=== PATIENT | female | born 1945 | race Caucasian/White ===

== ENCOUNTER 2017-10-16 11:06 | Emergency (ER) | payer OTHER, MEDICARE ==
[2017-10-16 12:26] LABS: Absolute Lymphocytes (CBC) 1.4 K/uL (0.7-4.9); Absolute Monocytes 0.6 K/uL (0.1-1.3); Absolute Neutrophil 3.9 K/uL (1.8-8.0); Basophils % 0.7 % (0-1.3); Eosinophils % 3.6 % (0-4.4); Hematocrit 44.8 % (36.0-45.0); Lymphocytes % 22.7 % (15.3-44.8); MCH 29.7 pg (27.0-35.0); MCV 90.6 fL (80-100); MPV 11.9 fL (7.6-11.3); RBC Red Blood Cell Count 4.94 M/uL (3.86-4.86)
[2017-10-16 12:47] LABS: Potassium 3.8 mEq/L (3.6-5.0)
[2017-10-16 12:53] LABS: Albumin 4.3 g/dL (3.2-5.5); Bilirubin Direct 0.2 mg/dL (0-0.2); Bilirubin Total 0.6 mg/dL (0.3-1.2); Protein, Total 7.8 g/dL (6.0-8.3)
[2017-10-16 13:30] LABS: Urine Bacteria <20 /HPF (<20); Urine Culture Reflex Order NOT NEEDED; Urine RBC <5 /HPF (NONE SEEN)
--- NOTE | 2017-10-16 13:51 | RAD REPORT ---
EXAM DESCRIPTION: CTAbdomen Pelvis W Contrast - 10/16/2017 1:42 pm CLINICAL HISTORY: Abdominal pain. COMPARISON: None. TECHNIQUE: Biphasic CT imaging of the abdomen and pelvis was performed with 100 ml non-ionic IV cont rast. All CT scans are performed using dose optimization technique as appropriate and may include automated exposure control or mA/KV adjustment according to patient size. FINDINGS: The lung bases are clear.Cholecystectomy clips. The liver, spleen, pancreas, adrenal glands and kidneys are within normal limits. No bowel obstruction, free air, free fluid or abscess. The appendix is normal. No evidence of signi ficant lymphadenopathy. No suspicious bony findings. IMPRESSION: No acute intra-abdominal or pelvic finding.
--- NOTE | 2017-10-16 13:58 | EDPHYS ---
Physician Documentation [facility] Name: Marilee Blanchard Age: 71 yrs Sex: Female : 1945 Arrival Date: 10/16/2017 Time: 11:11 Bed 20 Private MD: Rm Goss E ED Physician Zi Beaulieu HPI: 10/16 12:07 This 71 yrs old Female presents to ER via Ambulatory with complaints of kdr Abdominal Pain, Black/Tarry Stools. 12:07 The patient presents with abdominal pain in the lower abdomen, Low back. Onset: The kdr symptoms/episode began/occurred gradually, 3 day(s) ago. The symptoms radiate to low back area. Associated signs and symptoms: Pertinent positives: nausea, Chills, Pertinent negatives: blood in stools, chest pain, constipation, diarrhea, dysuria, fever, headache, hematuria, palpitations, shortness of breath, vaginal discharge, vomiting, vomiting blood. The symptoms are described as achy, burning, crampy, intermittent. Severity of pain: At its worst the pain was mild moderate just prior to arrival, in the emergency department the pain. The patient has not experienced similar symptoms in the past. The patient has not recently seen a physician, has had prior Colonoscopy. Historical: - Allergies: 11:26 No Known Allergies; ae1 - Home Meds: 11:26 pantoprazole oral oral [Active]; Vitamin D Oral [Active]; ae1 - PMHx: 11:26 Osteoporosis; GERD; breast cancer; ae1 - PSHx: 11:26 Lumpectomy; Cholecystectomy; ae1 - Immunization history:: Last tetanus immunization: up to date Pneumococcal vaccine is up to date, Flu vaccine is up to date. - Social history:: Smoking status: Patient/guardian denies using tobacco. - Ebola Screening: : No symptoms or risks identified at this time. ROS: 12:07 Constitutional: Negative for fever, chills, and weight loss, Eyes: Negative for injury, kdr pain, redness, and discharge, ENT: Negative for injury, pain, and discharge, Neck: Negative for injury, pain, and swelling, Cardiovascular: Negative for chest pain, palpitations, and edema, Respiratory: Negative for shortness of breath, cough, wheezing, and pleuritic chest pain, Back: Negative for injury and pain, : Negative for injury, bleeding, discharge, and swelling, MS/Extremity: Negative for injury and deformity, Skin: Negative for injury, rash, and discoloration, Neuro: Negative for headache, weakness, numbness, tingling, and seizure activity. Psych: Negative for depression, anxiety, suicide ideation, homicidal ideation, and hallucinations, Allergy/Immunology: Negative for hives, rash, and allergies, Endocrine: Negative for neck swelling, polydipsia, polyuria, polyphagia, and marked weight changes, Hematologic/Lymphatic: Negative for swollen nodes, abnormal bleeding, and unusual bruising. 12:07 Abdomen/GI: Positive for abdominal pain, nausea, black/tarry stool. Exam: 12:07 Constitutional: This is a well developed, well nourished patient who is awake, alert, kdr and in no acute distress. Head/Face: Normocephalic, atraumatic. Eyes: Pupils equal round and reactive to light, extra-ocular motions intact. Lids and lashes normal. Conjunctiva and sclera are non-icteric and not injected. Cornea within normal limits. Periorbital areas with no swelling, redness, or edema. Neck: Trachea midline, no thyromegaly or masses palpated, and no cervical lymphadenopathy. Supple, full range of motion without nuchal rigidity, or vertebral point tenderness. No Meningismus. Chest/axilla: Normal chest wall appearance and motion. Nontender with no deformity. No lesions are appreciated. Cardiovascular: Regular rate and rhythm with a normal S1 and S2. No gallops, murmurs, or rubs. Normal PMI, no JVD. No pulse deficits. Respiratory: Lungs have equal breath sounds bilaterally, clear to auscultation and percussion. No rales, rhonchi or wheezes noted. No increased work of breathing, no retractions or nasal flaring. Abdomen/GI: Soft, non-tender, with normal bowel sounds. No distension or tympany. No guarding or rebound. No evidence of tenderness throughout. Back: No spinal tenderness. No costovertebral tenderness. Full range of motion. Skin: Warm, dry with normal turgor. Normal color with no rashes, no lesions, and no evidence of cellulitis. MS/ Extremity: Pulses equal, no cyanosis. Neurovascular intact. Full, normal range of motion. Neuro: Awake and alert, GCS 15, oriented to person, place, time, and situation. Cranial nerves II-XII grossly intact. Motor strength 5/5 in all extremities. Sensory grossly intact. Cerebellar exam normal. Normal gait. Psych: Awake, alert, with orientation to person, place and time. Behavior, mood, and affect are within normal limits. 12:07 Abdomen/GI: Rectal exam: rectal tone normal, Stool: normal, brown, guaiac negative. Vital Signs: 11:24 BP 152 / 98; Pulse 62; Resp 19; Temp 98.3(O); Pulse Ox 99% on R/A; Weight 68.95 kg (R); ae1 12:24 BP 149 / 89; Pulse 60; Resp 18; Pulse Ox 98% on R/A; Pain 0/10; em 13:38 BP 145 / 91; Pulse 56; Resp 18; Pulse Ox 99% on R/A; em 14:15 BP 171 / 72; Pulse 54; Resp 18; Pulse Ox 97% on R/A; em MDM: 12:07 Data reviewed: vital signs, nurses notes, lab test result(s), radiologic studies. kdr Counseling: I had a detailed discussion with the patient and/or guardian regarding: the historical points, exam findings, and any diagnostic results supporting the discharge/admit diagnosis, lab results, radiology results. 13:57 Patient medically screened. [facility] 10/16 12:06 Order name: Occult Blood--Ancillary; Complete Time: 13: 10/16 12:07 Order name: Basic Metabolic Panel; Complete Time: 13: [facility] 10/16 12:07 Order name: CBC with Diff; Complete Time: 13: [facility] 10/16 12:07 Order name: Creatinine for Radiology; Complete Time: 13: [facility] 10/16 12:07 Order name: Hepatic Function; Complete Time: 13:01 [facility] 10/16 12:07 Order name: Lipase; Complete Time: 13:01 [facility] 10/16 12:07 Order name: Urine Microscopic Only; Complete Time: 13:56 [facility] 10/16 12:07 Order name: IV Saline Lock; Complete Time: 12:08 [facility] 10/16 12:07 Order name: Labs collected and sent; Complete Time: 13:46 [facility] 10/16 12:07 Order name: Urine Dipstick-Ancillary (obtain specimen); Complete Time: 13:46 [facility] 10/16 12:07 Order name: CT Abd/Pelvis - W/Contrast; Complete Time: 13:56 [facility] 10/16 13:14 Order name: Urine Dipstick--Ancillary (enter results) bd Administered Medications: No medications were administered Disposition: 10/16/17 13:57 Discharged to Home. Impression: Abdominal and pelvic pain. - Condition is Stable. - Discharge Instructions: Abdominal Pain, Adult, [id number]. - Prescriptions for Bentyl 20 mg Oral Tablet - take 1 tablet by ORAL route every 6 hours As needed; 20 tablet. Pepcid 20 mg Oral Tablet - take 1 tablet by ORAL route every 12 hours for 5 days; 10 tablet. Zofran 4 mg Oral Tablet - take 1 tablet by ORAL route every 12 hours As needed; 6 tablet. Tramadol 50 mg Oral Tablet - take 1 tablet by ORAL route every 8 hours as needed; 12 tablet. - Medication Reconciliation Form, Thank You Letter, Antibiotic Education, Prescription Opioid Use form. - Follow up: Rm Goss MD; When: 2 - 3 days; Reason: If symptoms return, Further diagnostic work-up, Recheck today's complaints, Continuance of care, Re-evaluation by your physician. - Problem is an ongoing problem. - Symptoms have improved. Signatures: Dispatcher [employer] EDMS Zi Beaulieu MD MD kdr Uriel Cho, BORDER MEASURER BORDER MEASURER em Neal Grissom RN RN ae1 Corrections: (The following items were deleted from the chart) 14:30 13:57 10/16/2017 13:57 Discharged to Home. Impression: Abdominal and pelvic pain. em Condition is Stable. Forms are Medication Reconciliation Form, Thank You Letter, Antibiotic Education, Prescription Opioid Use. Follow up: Rm Goss; When: 2 - 3 days; Reason: If symptoms return, Further diagnostic work-up, Recheck today's complaints, Continuance of care, Re-evaluation by your physician. Problem is an ongoing problem. Symptoms have improved. kdr
--- NOTE | 2017-10-16 13:58 | ER ---
Nurse's Notes [facility] Name: Marilee Blanchard Age: 71 yrs Sex: Female : 1945 Arrival Date: 10/16/2017 Time: 11:11 Bed 20 Private MD: Rm Goss E Diagnosis: Abdominal and pelvic pain Presentation: 10/16 11:22 Presenting complaint: Patient states: Patient report "black tarry stool" and abdominal ae1 pain since the previous Wednesday. Transition of care: patient was not received from another setting of care. Onset of symptoms was October 13, 2017. 11:22 Method Of Arrival: Ambulatory ae1 11:22 Acuity: RHEA 3 ae1 11:28 Initial Sepsis Screen: Does the patient meet any 2 criteria? No. Patient's initial ae1 sepsis screen is negative. Does the patient have a suspected source of infection? No. Patient's initial sepsis screen is negative. 12:55 Risk Assessment: Do you want to hurt yourself or someone else? Patient reports no em desire to harm self or others. Care prior to arrival: None. Triage Assessment: 11:27 General: Appears in no apparent distress. comfortable, well groomed, Behavior is calm, ae1 cooperative. Pain: Complains of pain in abdomen Pain currently is 1 out of 10 on a pain scale. at worst was 10 out of 10 on a pain scale. Neuro: Level of Consciousness is awake, alert, obeys commands, Oriented to person, place, time, situation. GI: Abdomen is round. Historical: - Allergies: 11:26 No Known Allergies; ae1 - Home Meds: 11:26 pantoprazole oral oral [Active]; Vitamin D Oral [Active]; ae1 - PMHx: 11:26 Osteoporosis; GERD; breast cancer; ae1 - PSHx: 11:26 Lumpectomy; Cholecystectomy; ae1 - Immunization history:: Last tetanus immunization: up to date Pneumococcal vaccine is up to date, Flu vaccine is up to date. - Social history:: Smoking status: Patient/guardian denies using tobacco. - Ebola Screening: : No symptoms or risks identified at this time. Screenin:55 Abuse screen: Denies threats or abuse. Nutritional screening: No deficits noted. em Tuberculosis screening: No symptoms or risk factors identified. Fall Risk None identified. Assessment: 11:55 General: Appears in no apparent distress. uncomfortable, Behavior is calm, cooperative. em General: Reports chills for black tarry stool this morning and feeling "uncomfortable" with N denies vomiting or diarrhea. Pain: Denies pain. Neuro: Level of Consciousness is awake, alert, obeys commands, Oriented to person, place, time, situation. Cardiovascular: Capillary refill < 3 seconds Patient's skin is warm and dry. Respiratory: Airway is patent Respiratory effort is even, unlabored, Breath sounds are clear bilaterally. GI: Abdomen is round non-distended, Bowel sounds present X 4 quads. Abd is soft and non tender X 4 quads. Reports nausea. : Denies burning with urination. EENT: No signs and/or symptoms were reported regarding the EENT system. Derm: Skin is intact, Skin is pink, warm \\T\\ dry. Musculoskeletal: Range of motion: intact in all extremities. 12:00 Reassessment: Patient appears in no apparent distress at this time. I agree with above iw assessment by Uriel Cho LVN. 12:45 Reassessment: Patient appears in no apparent distress at this time. Patient and/or em family updated on plan of care and expected duration. Pain level reassessed. Patient is alert, oriented x 3, equal unlabored respirations, skin warm/dry/pink. 13:45 Reassessment: Patient appears in no apparent distress at this time. Patient and/or em family updated on plan of care and expected duration. Pain level reassessed. Patient is alert, oriented x 3, equal unlabored respirations, skin warm/dry/pink. Patient denies pain at this time. Vital Signs: 11:24 BP 152 / 98; Pulse 62; Resp 19; Temp 98.3(O); Pulse Ox 99% on R/A; Weight 68.95 kg (R); ae1 12:24 BP 149 / 89; Pulse 60; Resp 18; Pulse Ox 98% on R/A; Pain 0/10; em 13:38 BP 145 / 91; Pulse 56; Resp 18; Pulse Ox 99% on R/A; em 14:15 BP 171 / 72; Pulse 54; Resp 18; Pulse Ox 97% on R/A; em ED Course: 11:11 Patient arrived in ED. mr 11:11 Rm Goss MD is Private Physician. mr 11:12 Zi Beaulieu MD is Attending Physician. kdr 11:24 Triage completed. ae1 11:25 Arm band placed on right wrist. ae1 11:56 Initial lab(s) drawn, by me, held in ED. Urine collected: clean catch specimen, clear. mh5 Inserted saline lock: 20 gauge in right antecubital area, using aseptic technique. Blood collected. 11:57 Patient has correct armband on for positive identification. Placed in gown. Bed in low mh5 position. Call light in reach. Side rails up X 1. Adult w/ patient. Warm blanket given. Pillow given. Pulse ox on. NIBP on. 12:14 sent to lab. 5 12:32 Uriel Cho LVN is Primary Nurse. em 12:55 No provider procedures requiring assistance completed. em 13:42 CT Abd/Pelvis - W/Contrast In Process Unspecified. EDMS 13:56 Rm Goss MD is Referral Physician. kdr 14:29 IV discontinued, intact, bleeding controlled, No redness/swelling at site. Pressure em dressing applied. Administered Medications: No medications were administered Outcome: 13:57 Discharge ordered by . kdr 14:29 Discharged to home ambulatory. em 14:29 Condition: good 14:29 Discharge instructions given to patient, family, Instructed on discharge instructions, follow up and referral plans. medication usage, Demonstrated understanding of instructions, follow-up care, medications, Prescriptions given X 4. 14:30 Patient left the ED. em Signatures: Dispatcher [employer] EDKS Zi Beaulieu MD MD kdr Rivera, Maria mr Uriel Cho LVN FITTER TYPE BAR AND SEGMENT em Libra Gannon RN RN Neal Grissom RN RN [facility] Phuong Smith [facility]
[2017-10-16 14:39] LABS: Urine Blood NEGATIVE (NEG); Urine Glucose NEGATIVE (NEG); Urine Protein NEGATIVE (NEG); Urine Specific Gravity 1.015 (1.005-1.030); Urine pH 6.5 (5.0-7.0)
== END 2017-10-16 14:30 | disposition home or self-care (01) ==
LOC: ER 11:06
DX: R10.2 Pelvic and perineal pain (principal); K21.9 Gastro-esophageal reflux disease without esophagitis; Z85.3 Personal history of malignant neoplasm of breast
CPT/HCPCS: 36415; 74177; 80048; 80076; 82272; 83690; 85025; 99284; Q9967; 81003; 81015

== ENCOUNTER 2017-12-06 15:00 | Observation (INO) | payer OTHER, MEDICARE ==
--- NOTE | 2017-12-06 15:45 | ER ---
Nurse's Notes [facility] Name: Marilee Blanchard Age: 72 yrs Sex: Female : 1945 Arrival Date: 12/06/2017 Time: 15:02 Bed 4 Private MD: Rm Goss E Diagnosis: Atrial fibrillation and flutter Presentation: 12/06 15:10 Presenting complaint: Patient states: "I was in rehab and I got heaviness in my chest". aa5 Pt denies SOB. Sent here for A-fib RVR up to [address] Khan. Pt states "the first time I had A-fib was about [address] Khan said that if it happened again I would have to be admitted to the hospital". Transition of care: patient was not received from another setting of care. Onset of symptoms was December 06, 2017. Risk Assessment: Do you want to hurt yourself or someone else? Patient reports no desire to harm self or others. Initial Sepsis Screen: Does the patient meet any 2 criteria? No. Patient's initial sepsis screen is negative. Does the patient have a suspected source of infection? No. Patient's initial sepsis screen is negative. 15:10 Method Of Arrival: Ambulatory aa5 15:10 Acuity: RHEA 2 aa5 15:10 Care prior to arrival: None. aa5 Triage Assessment: 15:27 General: Appears in no apparent distress. uncomfortable, Behavior is calm, cooperative, hj appropriate for age. Pain: Complains of pain in chest. EENT: No signs and/or symptoms were reported regarding the EENT system. Neuro: Level of Consciousness is awake, alert, obeys commands, Oriented to person, place, time, situation, Appropriate for age. Cardiovascular: Reports chest pain, Heart tones S1 S2 present Capillary refill < 3 seconds Patient's skin is warm and dry. Respiratory: Reports shortness of breath Airway is patent Respiratory effort is even, unlabored, Respiratory pattern is regular, symmetrical. GI: No signs and/or symptoms were reported involving the gastrointestinal system. : No signs and/or symptoms were reported regarding the genitourinary system. Derm: No signs and/or symptoms reported regarding the dermatologic system. Musculoskeletal: No signs and/or symptoms reported regarding the musculoskeletal system. Historical: - Allergies: 15:12 No Known Allergies; aa5 - Home Meds: 15:29 pantoprazole Oral [Active]; Vitamin D Oral [Active]; Xarelto oral oral [Active]; hj - PMHx: 15:12 breast cancer; GERD; Osteoporosis; Atrial Fib; aa5 - PSHx: 15:12 L lumpectomy; Cholecystectomy; aa5 - Immunization history:: Adult Immunizations up to date. - Social history:: Smoking status: Patient/guardian denies using tobacco. - Ebola Screening: : No symptoms or risks identified at this time. Screenin:27 Abuse screen: Denies threats or abuse. Denies injuries from another. Nutritional hj screening: No deficits noted. Tuberculosis screening: No symptoms or risk factors identified. Fall Risk None identified. Assessment: 15:28 Reassessment: see triage for assessment;. hj 16:36 Reassessment: Patient and/or family updated on plan of care and expected duration. Pain hj level reassessed. Patient is alert, oriented x 3, equal unlabored respirations, skin warm/dry/pink. Patient states feeling better. Patient states symptoms have improved. 16:55 Reassessment: Patient and/or family updated on plan of care and expected duration. Pain hj level reassessed. Patient is alert, oriented x 3, equal unlabored respirations, skin warm/dry/pink. report given to DIANE Lopez. Vital Signs: 15:10 BP 150 / 93; Pulse 110; Resp 18 S; Temp 98.1(TE); Pulse Ox 98% on R/A; Weight 68.49 kg aa5 (R); Height 5 ft. 1 in. (154.94 cm) (R); Pain 3/10; 15:30 BP 141 / 76; Pulse 126; Resp 18; Pulse Ox 100% on R/A; hj 16:00 BP 142 / 76; Pulse 135; Resp 18; Pulse Ox 100% on R/A; hj 16:30 BP 144 / 76; Pulse 122; Resp 18; Pulse Ox 100% on R/A; hj 15:10 Body Mass Index 28.53 (68.49 kg, 154.94 cm) aa5 ED Course: 15:02 Patient arrived in ED. mr 15:03 Rm Goss MD is Private Physician. mr 15:10 Arm band placed on. aa5 15:11 Triage completed. aa5 15:13 Calos Carpenter MD is Attending Physician. gs 15:16 Rafal Michelle, RN is Primary Nurse. hj 15:17 EKG done, by audiovisual aids technician. reviewed by Calos Carpenter MD. at1 15:26 Initial lab(s) drawn, by me, sent to lab. Inserted saline lock: 22 gauge in right hj antecubital area, using aseptic technique. Blood collected. 15:28 Patient has correct armband on for positive identification. Placed in gown. Bed in low hj position. Call light in reach. Side rails up X 1. Adult w/ patient. 15:44 Reginaldo Warren MD is Hospitalizing Provider. gs 17:12 No provider procedures requiring assistance completed. Patient admitted, IV remains in hj place. intact. Administered Medications: 06:10 Drug: Flecainide 100 mg Route: PO; hj 16:38 Follow up: Response: No adverse reaction hj 16:10 Drug: Cardizem - Diltiazem 180 mg Route: PO; hj 16:38 Follow up: Response: No adverse reaction Outcome: 15:45 Decision to Hospitalize by Provider. gs 17:12 Admitted to Tele accompanied by tech, family with patient, via wheelchair, room 406, with chart, Report called to DIANE Lopez 17:12 Condition: stable 17:12 Instructed on the need for admit, Demonstrated understanding of instructions. 17:13 Patient left the ED. Signatures: Phuong Garcia mr WhiteDeidra, RN RN aa5 Uzma crum, hose cementer EKG Tat1 Rafal Michelle, RN RN Calos Carpenter MD MD Corrections: (The following items were deleted from the chart) 15:23 15:10 Presenting complaint: Patient states: "I was in rehab and I got heaviness in my aa5 chest". Pt denies SOB. Sent here for A-fib RVR up to [address] Khan. aa5 16:55 16:36 General: Behavior is hj hj
--- NOTE | 2017-12-06 15:45 | EDPHYS ---
Physician Documentation [facility] Name: Marilee Blanchard Age: 72 yrs Sex: Female : 1945 Arrival Date: 12/06/2017 Time: 15:02 Bed 4 Private MD: Rm Goss E ED Physician Calos Carpenter HPI: 12/06 16:08 This 72 yrs old Female presents to ER via Ambulatory with complaints of A-fib.gs 16:08 The patient presents with a history of irregular heart beat, heart racing. Context: The gs symptoms occur at rest. Onset: The symptoms/episode began/occurred 2 week(s) ago, and became persistent. Duration: The patient or guardian reports a single episode, that is still ongoing. Modifying factors: The symptoms are aggravated by nothing. The symptoms are alleviated by nothing. Associated signs and symptoms: Pertinent negatives: chest pain, SOB. Severity of symptoms: At their worst the symptoms were moderate in the emergency department the symptoms are unchanged. The patient has experienced similar episodes in the past, a few times. The patient has been recently seen by a physician: Dr. PAINTING. Historical: - Allergies: 15:12 No Known Allergies; aa5 - Home Meds: 15:29 pantoprazole Oral [Active]; Vitamin D Oral [Active]; Xarelto oral oral [Active]; hj - PMHx: 15:12 breast cancer; GERD; Osteoporosis; Atrial Fib; aa5 - PSHx: 15:12 L lumpectomy; Cholecystectomy; aa5 - Immunization history:: Adult Immunizations up to date. - Social history:: Smoking status: Patient/guardian denies using tobacco. - Ebola Screening: : No symptoms or risks identified at this time. ROS: 16:08 All other systems are negative. gs Exam: 16:08 Head/Face: Normocephalic, atraumatic. Eyes: Pupils equal round and reactive to light, gs extra-ocular motions intact. Lids and lashes normal. Conjunctiva and sclera are non-icteric and not injected. Cornea within normal limits. Periorbital areas with no swelling, redness, or edema. ENT: Nares patent. No nasal discharge, no septal abnormalities noted. Tympanic membranes are normal and external auditory canals are clear. Oropharynx with no redness, swelling, or masses, exudates, or evidence of obstruction, uvula midline. Mucous membranes moist. Neck: Trachea midline, no thyromegaly or masses palpated, and no cervical lymphadenopathy. Supple, full range of motion without nuchal rigidity, or vertebral point tenderness. No Meningismus. Chest/axilla: Normal chest wall appearance and motion. Nontender with no deformity. No lesions are appreciated. 16:08 Respiratory: Lungs have equal breath sounds bilaterally, clear to auscultation and percussion. No rales, rhonchi or wheezes noted. No increased work of breathing, no retractions or nasal flaring. Abdomen/GI: Soft, non-tender, with normal bowel sounds. No distension or tympany. No guarding or rebound. No evidence of tenderness throughout. Back: No spinal tenderness. No costovertebral tenderness. Full range of motion. Skin: Warm, dry with normal turgor. Normal color with no rashes, no lesions, and no evidence of cellulitis. MS/ Extremity: Pulses equal, no cyanosis. Neurovascular intact. Full, normal range of motion. Neuro: Awake and alert, GCS 15, oriented to person, place, time, and situation. Cranial nerves II-XII grossly intact. Motor strength 5/5 in all extremities. Sensory grossly intact. Cerebellar exam normal. Normal gait. 16:08 Constitutional: The patient appears in no acute distress, alert, awake. 16:08 Cardiovascular: Rate: tachycardic, Rhythm: irregularly irregular, Pulses: no pulse deficits are appreciated, Heart sounds: normal, Edema: is not appreciated. 16:08 ECG was reviewed by the Attending Physician. Vital Signs: 15:10 BP 150 / 93; Pulse 110; Resp 18 S; Temp 98.1(TE); Pulse Ox 98% on R/A; Weight 68.49 kg aa5 (R); Height 5 ft. 1 in. (154.94 cm) (R); Pain 3/10; 15:30 BP 141 / 76; Pulse 126; Resp 18; Pulse Ox 100% on R/A; hj 16:00 BP 142 / 76; Pulse 135; Resp 18; Pulse Ox 100% on R/A; hj 16:30 BP 144 / 76; Pulse 122; Resp 18; Pulse Ox 100% on R/A; hj 15:10 Body Mass Index 28.53 (68.49 kg, 154.94 cm) aa5 MDM: 15:30 Patient medically screened. 16:08 Differential diagnosis: arrythmia, dehydration, stress disorder, PNEUMONIA, gs AFIB/FLUTTER. Data reviewed: vital signs, nurses notes. Response to treatment: the patient's symptoms have mildly improved after treatment, and as a result, I will admit patient. 12/06 15:29 Order name: Basic Metabolic Panel 12/06 15:29 Order name: CBC with Diff 12/06 15:29 Order name: Magnesium 12/06 15:29 Order name: PT-INR 12/06 15:59 Order name: CBC with Automated Diff [facility] 12/06 15:59 Order name: CBC with Automated Diff [facility] 12/06 15:29 Order name: EKG; Complete Time: 15:30 12/06 15:59 Order name: Comprehensive Metabolic Panel [facility] 12/06 15:59 Order name: Comprehensive Metabolic Panel [facility] 12/06 15:59 Order name: Magnesium [facility] 12/06 15:59 Order name: Magnesium [facility] 12/06 16:03 Order name: Urine Dipstick--Ancillary (enter results) 12/06 15:29 Order name: Cardiac monitoring; Complete Time: 15:30 12/06 15:29 Order name: EKG - Nurse/Tech; Complete Time: 15:30 12/06 15:29 Order name: IV Saline Lock; Complete Time: 15:30 12/06 15:29 Order name: Labs collected and sent; Complete Time: 15:30 12/06 15:29 Order name: O2 Per Protocol; Complete Time: 15:30 12/06 15:29 Order name: O2 Sat Monitoring; Complete Time: 15:30 12/06 15:58 Order name: CONS Physician Consult [facility] 12/06 15:59 Order name: Heart Healthy [facility] EC:08 Rate is 103 beats/min. Rhythm is irregularly irregular. QRS interval is normal. QT gs interval is normal. T waves are Flattened. Clinical impression: Abnormal EKG without significant change, Atrial Fibrillation, and Atrial Flutter. Interpreted by me. Administered Medications: 06:10 Drug: Flecainide 100 mg Route: PO; 16:38 Follow up: Response: No adverse reaction 16:10 Drug: Cardizem - Diltiazem 180 mg Route: PO; 16:38 Follow up: Response: No adverse reaction hj Disposition: 12/06/17 15:45 Hospitalization ordered by Reginaldo Warren for Inpatient Admission. Preliminary diagnosis is Atrial fibrillation and flutter. - Bed requested for Telemetry/MedSurg (Inpatient). - Status is Inpatient Admission. hj - Condition is Stable. - Problem is new. - Symptoms have improved. UTI on Admission? No Critical care time excluding procedures: 16:08 Critical care time: Bedside Care: 10 minutes, Consultation: 10 minutes, Family gs Intervention: 10 minutes. Total time: 30 minutes Signatures: Dispatcher [employer] EDMS Deidra White, RN RN aa5 Rafal Michelle RN RN hj Starr, Gregory, MD MD gs Botello, Elizabeth eb Corrections: (The following items were deleted from the chart) 16:10 15:45 Hospitalization Ordered by Reginaldo Warren MD for Inpatient Admission. Preliminary eb diagnosis is Atrial fibrillation and flutter. Bed requested for Telemetry/MedSurg (Inpatient). Status is Inpatient Admission. Condition is Stable. Problem is new. Symptoms have improved. UTI on Admission? No. gs 16:38 16:10 12/06/2017 15:45 Hospitalization Ordered by Reginaldo Warren MD for Inpatient eb Admission. Preliminary diagnosis is Atrial fibrillation and flutter. Bed requested for Telemetry/MedSurg (Inpatient). Status is Inpatient Admission. Condition is Stable. Problem is new. Symptoms have improved. UTI on Admission? No. eb 17:13 16:38 12/06/2017 15:45 Hospitalization Ordered by Reginaldo Warren MD for Inpatient hj Admission. Preliminary diagnosis is Atrial fibrillation and flutter. Bed requested for Telemetry/MedSurg (Inpatient). Status is Inpatient Admission. Condition is Stable. Problem is new. Symptoms have improved. UTI on Admission? No. eb
[2017-12-06] MEDS ORDERED: ACETAMINOPHEN 500 MG TAB PO PRN (15:55)
[2017-12-06 16:02] LABS: Absolute Lymphocytes (CBC) 1.5 K/uL (0.7-4.9); Absolute Monocytes 0.7 K/uL (0.1-1.3); Basophils % 0.8 % (0-1.3); Eosinophils % 4.9 % (0-4.4); Hematocrit 45.1 % (36.0-45.0); Lymphocytes % 19.8 % (15.3-44.8); MCH 30.7 pg (27.0-35.0); MCV 90.6 fL (80-100); MPV 11.3 fL (7.6-11.3); RBC Red Blood Cell Count 4.98 M/uL (3.86-4.86)
[2017-12-06 16:03] LABS: Protime INR 1.45
[2017-12-06 16:13] LABS: Magnesium 2.2 mg/dL (1.8-2.4); Potassium 3.8 mmol/L (3.5-5.1)
--- NOTE | 2017-12-06 16:17 | EKG ---
Test Date: 2017-12-06 Test Time: 15:21:49 Counter Waiter: ARLET MEASUREMENT RESULTS: Intervals: Rate: 103 IN: QRSD: 72 QT: 344 QTc: 450 [place]: P: IN: QRS: -5 T: 39 INTERPRETIVE STATEMENTS: Atrial fibrillation with rapid ventricular response with premature ventricular or aberrantly conducted complexes Cannot rule out Anterior infarct, age undetermined Abnormal ECG Compared to ECG 09/21/2012 10:31:57 Ventricular premature complex(es) now present Myocardial infarct finding now present Sinus rhythm no longer present Electronically Signed On 12-06-17 16:17:21 CDT by Dakota Khan
[2017-12-06 16:49] LABS: Urine Blood NEGATIVE (NEG); Urine Glucose NEGATIVE (NEG); Urine Protein NEGATIVE (NEG); Urine Specific Gravity 1.005 (1.005-1.030); Urine pH 5.5 (5.0-7.0)
[2017-12-06] MEDS ORDERED: FLECAINIDE 100 MG TAB PO ONE (17:00)
[2017-12-06] MEDS ORDERED: DILTIAZEM HCL 180 MG SR CAP PO ONE (17:00)
--- NOTE | 2017-12-06 17:22 | HP ---
Date of Admission: 12/06/2017 Consultants: Dr. Khan, Cardiology. Primary Care Physician: Dr. Goss. Chief Complaint: Abnormal heart rhythm. Code Status: Full. History Of Present Illness: The patient is a 72-year-old female with past medical history of atrial fibrillation, recently started on Xarelto, fatty liver disease, osteoporosis, comes in with abnormal heart rhythm found during cardiac rehab. The patient otherwise denies any specific palpitations or shortness of breath during the cardiac rehab exercise, however, does note palpitations and shortness of breath on occasion. The patient denies any chest pressure. The patient came to the ER for further evaluation of her symptoms, which were constant, moderate, progressively worsening. Upon arrival, the patient's vital signs were stable. She was in atrial fibrillation, rate in the 120s. The patient was given some IV fluids and Dr. Khan was consulted by the ER. He recommended Cardizem and flecainide. The patient was then referred for admission. When seen in the ER, she was awake, alert, oriented x3, not in any acute distress. Past Medical History: Atrial fibrillation, gastroesophageal reflux disease, history of breast mass, status post lumpectomy, osteoporosis, fatty liver disease Past Surgical History: Breast lumpectomy x2 on both sides, gallbladder surgery. Allergies: NO KNOWN DRUG ALLERGIES. Social History: No tobacco use, alcohol use, or illicit drug use. The patient is very independent in her activities of daily living. Currently undergoing cardiac rehab. Family History: Positive for cancer in the mom, heart disease in the dad. Medications: Reviewed. Review of Systems: An 11-point systems reviewed, negative except as per HPI. Physical Examination: Vital Signs: Blood pressure 150/93, pulse 110, respirations 18, temperature 98.1, O2 98% on room air. General: Awake, alert, oriented x3, in some mild distress. Elderly female. HEENT: Normocephalic, atraumatic. PERRLA. EOMI. Moist mucous membranes. Oropharynx is clear. Conjunctiva anicteric. Neck: Supple. No JVD. Trachea midline. CV: S1, S2. Irregularly irregular. Peripheral pulses are present. No murmurs. Respiratory: clear to auscultation bilaterally. No wheezing. No stridor. Gastrointestinal: Abdomen is soft, nontender, nondistended. Positive bowel sounds. No guarding or rigidity. Extremities: No clubbing, cyanosis, or edema. No calf tenderness. Neuro: Cranial nerves 2 through 12 intact grossly. No focal neurological deficit. Speech is normal. Strength is 5/5 bilateral upper and lower extremities. Sensation intact to light touch. Skin: No rashes. Normal skin turgor. Psych: Mood is good. Affect is full. Insight and judgment are good. Laboratory Data: Sodium 142, potassium 3.8, chloride 106, CO2 28, BUN 11, creatinine 0.8, glucose 86, calcium 9.2, and magnesium 2.2. INR 1.45. UA is pending. WBC 7.6, H and H 15.3, 45.1, platelets 194, neutrophils 65%. EKG shows a rate of 103, irregularly irregular, atrial fibrillation. Assessment And Plan: A 72-year-old female with; 1. Atrial fibrillation with RVR. Dr. Khan recommends flecainide and Cardizem. The patient is already on Xarelto. The patient was very sensitive to sotalol, failed treatment with Multaq. We will place on cardiac telemetry. Monitor closely. 2. Gastroesophageal reflux disease without esophagitis. We will continue PPI. 3. History of osteoporosis. 4. Fatty liver disease. 5. History of breast mass, status post lumpectomy and radiation therapy. 6. Gastrointestinal and deep venous thrombosis prophylaxis with PPI. The patient is already on Xarelto. Plan: Admit the patient to Med-Surg. Place as obs. MARLENE Voice ID: [id number] MTDD
[2017-12-06] MEDS: NA CHLORIDE 0.9% 1,000 ML IV SCH (17:44)
[2017-12-06] MEDS ORDERED: RIVAROXABAN 20 MG TABLET PO SCH (18:52)
[2017-12-06] MEDS ORDERED: PANTOPRAZOLE 40MG TABLET PO SCH (19:00)
--- NOTE | 2017-12-06 20:47 | CON ---
Identification: A 72-year-old woman. Attending Physician: Dr. Warren Chief Complaint: Heart racing. History Of Present Illness: Ms. Blanchard had atrial fibrillation. I saw her in the office. We had a normal noninvasive cardiac workup, start her on Multaq, but she was unable to tolerate it. She is t olerating Xarelto. She was sent to cardiac rehab and we attempted to do a sleep study, has not been done yet and we noted when she went to cardiac rehab today, she was in atrial fib, heart rate about 1 10. She does not feel particularly bad in cardiac rehab, but does note she feels a little bit heavy in the chest. The patient does not use tobacco. No history of myocardial infarction, stroke, vascul ar disease. No history of diabetes. Physical Examination: General: She is alert, oriented, pleasant, cooperative. Vital signs: Blood pressure 150/93, heart rate 110, temperature 98.1, 68.5 kg, 5 feet 1, body mass i ndex 28.5. HEENT: Unremarkable. Lungs: Clear. Heart: Irregularly irregular. Extremities normal. No significant murmur, rub, or gallop. Diagnostic Data: EKG shows atrial fib. Impression: My impression is that the patient's atrial fibrillation will require antiarrhythmic drug s other than Multaq and we are going to try flecainide 100 b.i.d. and Cardizem CD to bring her heart rate and blood pressure down some. I think she was fairly intolerant of different beta-alexis we tr ied as well so we will take the next step try flecainide. If that is unhelpful, then an EP consultat ion might be in order. She will may remain on Xarelto as an anticoagulant to reduce her risk of stroke. The patient seems to understand the reason for hospitalization and agrees . ASHLEY/CUAUHTEMOC Voice ID: [id number] Report ID: [id number]
[2017-12-07] MEDS: NA CHLORIDE 0.9% 1,000 ML IV SCH (05:19)
[2017-12-07 06:19] LABS: Absolute Lymphocytes (CBC) 1.4 K/uL (0.7-4.9); Absolute Monocytes 0.5 K/uL (0.1-1.3); Absolute Neutrophil 3.4 K/uL (1.8-8.0); Basophils % 1.2 % (0-1.3); Eosinophils % 8.1 % (0-4.4); Hematocrit 41.4 % (36.0-45.0); Lymphocytes % 24.3 % (15.3-44.8); MPV 10.8 fL (7.6-11.3); Monocytes % 9.2 % (3.3-12.3); RBC Red Blood Cell Count 4.61 M/uL (3.86-4.86)
[2017-12-07 06:28] LABS: Albumin 3.7 g/dL (3.4-5.0); Bilirubin Total 0.6 mg/dL (0.2-1.0); Magnesium 2.2 mg/dL (1.8-2.4); Potassium 3.8 mmol/L (3.5-5.1); Protein, Total 6.7 g/dL (6.4-8.2)
--- NOTE | 2017-12-07 06:32 | EKG ---
Test Date: 2017-12-06 Test Time: 19:46:06 Mail Sorting Supervisor: PANCHITO MEASUREMENT RESULTS: Intervals: Rate: 49 WI: 190 QRSD: 78 QT: 474 QTc: 428 [place]: P: 39 WI: 190 QRS: -7 T: 20 INTERPRETIVE STATEMENTS: Marked sinus bradycardia Abnormal ECG Compared to ECG 12/06/2017 15:21:49 Atrial fibrillation no longer present Ventricular premature complex(es) no longer present Myocardial infarct finding no longer present Electronically Signed On 12-07-17 06:32:20 CDT by Dakota Khan
[2017-12-07] MEDS ORDERED: FLECAINIDE 100 MG TAB PO SCH (09:00)
[2017-12-07] MEDS ORDERED: DILTIAZEM HCL 180 MG SR CAP PO SCH (09:00)
--- NOTE | 2017-12-08 07:55 | DS ---
Date of Discharge: 12/07/2017 Consultants: Dr. Khan with Cardiology. Admitting Diagnoses: 1.Atrial fibrillation with rapid ventricular response. 2.Gastroesophageal reflux disease without esophagitis. 3.History of osteoporosis. 4.Fatty liver disease. 5.History of breast mass, status post lumpectomy and radiation therapy. Discharge Diagnoses: 1.Atrial fibrillation with rapid ventricular response, now converted to sinus rhythm. 2.Gastroesophageal reflux disease without esophagitis. 3.History of osteoporosis. 4.Fatty liver disease. 5.History of breast mass, status post lumpectomy and radiation therapy. Hospital Course: The patient is a 72-year-old female who has history of atrial fibrillation, on Xare lto, has been going to cardiac rehab and was sent over due to palpitations and having irregular rhyth m. The patient has been tried on multiple medications including Multaq and sotalol, however, has not had good control. The patient was admitted to the hospital for atrial fibrillation with RVR, for wh ich she was given flecainide and Cardizem and her heart rate improved. She converted back to sinus r hythm. The patient is already anticoagulated with Xarelto. The patient was seen by Dr. Khan and lee bell patient did well over the course of the hospital stay. She denied any further palpitations, s hortness of breath, chest pain. Her workup did not reveal any electrolyte abnormalities. The patien t was able to ambulate. She was tolerating her diet. Does not have any further symptoms. The patie nt was then cleared for discharge from Cardiology standpoint to go home with Cardizem and flecainide. Medications: As per medication reconciliation. Followup: Follow up with primary care physician in 2-3 days. Follow up with mlt, Dr. Leonid rojo, in 2 weeks. Return to ER for worsening condition. Diet: Heart healthy. Activity: As tolerated. Physical Examination: General: Awake, alert, oriented, no acute distress. CV: S1, S2. No murmurs. Respiratory: Moving air well bilaterally. Abdomen: Soft, nontender, nondistended. Positive bowel sounds. Extremities: No clubbing, cyanosis, edema. Neurologic: Nonfocal. SA/MODL Voice ID: [id number] Report ID: [id number]
--- NOTE | 2017-12-08 11:58 | PN ---
Date of Progress Note: 12/07/2017 The patient was admitted with atrial fibrillation, atrial flutter, had been intolerant to beta blocke r and Multaq. Dr. Khan put her on flecainide 100 b.i.d. and Xarelto as well as Cardizem. She is i n normal sinus rhythm today. Tolerated her medication well. She can go home today and should follow up with either Dr. Khan or I in next 2 weeks. MARILYN/CUAUHTEMOC Voice ID: [id number] Report ID: [id number]
== END 2017-12-07 10:44 | disposition home or self-care (01) ==
LOC: ER 15:00 → ERHOLD 15:45 → INTOOBSV 15:45 → 4TH 16:52
PROVIDERS: ADMIT Family Medicine; ATTEND Family Medicine
DX: I48.91 Unspecified atrial fibrillation (principal); K21.9 Gastro-esophageal reflux disease without esophagitis; M81.0 Age-related osteoporosis without current pathological fracture; K76.0 Fatty (change of) liver, not elsewhere classified; Z79.01 Long term (current) use of anticoagulants; Z85.3 Personal history of malignant neoplasm of breast
CPT/HCPCS: 36415; 80048; 80053; 81003; 83735 ×2; 85025 ×2; 85610; 93005 ×2; 94760 ×3; 99285; G0378 ×2; J7030 ×2; 95810

== ENCOUNTER 2019-10-31 07:01 | Day surgery (SDC) | payer OTHER, MEDICARE ==
[2019-10-27 08:43] LABS: Absolute Lymphocytes (CBC) 1.1 K/uL (0.7-4.9); Basophils % 1.1 % (0-1.3); Hematocrit 41.3 % (36.0-45.0); MPV 9.2 fL (7.6-11.3); RBC Red Blood Cell Count 4.85 M/uL (3.86-4.86)
[2019-10-27 08:58] LABS: Protime INR 1.08
[2019-10-27 09:32] LABS: Albumin 3.7 g/dL (3.4-5.0); Bilirubin Total 0.6 mg/dL (0.2-1.0); Potassium 4.1 mmol/L (3.5-5.1); Protein, Total 7.5 g/dL (6.4-8.2)
--- NOTE | 2019-10-27 11:54 | EKG ---
Test Date: 2019-10-26 Test Time: 13:28:31 Press Set Up: ORAL MEASUREMENT RESULTS: Intervals: Rate: 63 CT: 216 QRSD: 94 QT: 440 QTc: 450 [place]: P: 66 CT: 216 QRS: -29 T: 24 INTERPRETIVE STATEMENTS: Sinus rhythm with 1st degree AV block Otherwise normal ECG Compared to ECG 12/06/2017 19:46:06 First degree AV block now present Sinus bradycardia no longer present Electronically Signed On 10-27-19 11:50:27 CDT by Anton Wagner
--- OUTSIDE RECORDS SUMMARY | 2019-10-31 07:20 | XMS REPORT | Clinical Summary ---
:1945 Author Organization [facility] Address [address] [place] [address] Care Team Providers Name Role Phone Conor Bailey MD Primary Care Provider Allergies No Known Allergies Medications Medication Sig Dispensed Refills Start End Date Status Date flecainide TK 1 T PO BID 3 Activ e (TAMBOCOR) 100 MG 9 tablet diltiazem CD 0 Active (CardIZEM CD) 120 MG 9 24 hr capsule cyanocobalamin/folic 0 Active acid (VITAMIN 9 T06-BGBTT ACID ORAL) pseudoephedrine HCl 0 Active (SINUS 12 HOUR ORAL) 9 cholecalciferol, Take 2,000 0 Ac tive vitamin D3, (VITAMIN Units by D3) 2,000 unit mouth daily. tablet aspirin (ECOTRIN) 81 Take 81 mg by 0 Active MG enteric coated mouth daily. tablet dexAMETHasone TK 1 T PO 2 Active (DECADRON) 4 MG BID FOR 3 9 tablet DAYS STARTING THE DAY BEFORE EACH CHEMO TX. ondansetron ODT 0 Acti ve (ZOFRAN-ODT) 4 MG 9 disintegrating tablet cyanocobalamin, Inject as 0 Acti ve vitamin B-12, (B-12 directed COMPLIANCE INJ) every 30 (thirty) days. Lactobac Take by 0 Active no.41/Bifidobact mouth. no.7 (PROBIOTIC-10 ORAL) pantoprazole Take 40 mg by 0 Act debbie (PROTONIX) 40 MG EC mouth daily. tablet gabapentin Take 1 90 capsule 0 03/08/20 Active (NEURONTIN) 100 mg capsule (100 9 20 capsuleIndications: mg total) by Nerve pain mouth 3 (three) times a day. XARELTO 20 mg tablet TK 1 T PO QD 3 Discontinued WITH THE BIRD 9 19 (Reorde r) MEAL omega-3/dha/epa/dpa/ 0 03/09/20 Discontinued fish oil (OMEGA-3 9 (P atient 2100 ORAL) Discharge ) XARELTO 20 mg tablet TK 1 T PO QD 3 Discontinued WITH THE BIRD 9 19 (Therap y MEAL completed) acetaminophen Take 2 30 tablet 0 02/03/20 d (TYLENOL) 500 MG tablets 9 19 tablet (1,000 mg total) by mouth every 8 (eight) hours for 5 days. gabapentin Take 1 90 capsule 0 02/28/20 (NEURONTIN) 100 mg capsule (100 9 19 capsule mg total) by mouth 3 (three) times a day for 30 days. naproxen sodium Take 1 tablet 6 tablet 0 02/01/20 (ALEVE) 220 MG (220 mg 9 19 tablet total) by mouth 2 (two) times a day with meals for 3 days. traMADol (ULTRAM) 50 Take 1 tablet 40 tablet 0 02/11 mg (50 mg total) 9 19 tabletIndications: by mouth acute pain every 6 (six) hours as needed for moderate pain for up to 10 days .Acute Pain. Active Problems Problem Noted Date Malignant neoplasm of right lung 02/09/2019 Lung nodules 01/26/2019 Encounters Date Type Specialty Care Team Description 03/09/2019 Office Visit Cardiothoracic Yinka Gordon Nerve pain (P rimary Dx); Surgery MD Bebe Malignant neopl asm of right lung, unspecified part of lung (HCC) 03/09/2019 Oncology Oncology Homero, Bonnie Ibrahim, DIANE 03/08/2019 Telephone Cardiothoracic Kip Andre MA 02/13/2019 Telephone General Surgery Yinka Gordon MD 02/09/2019 Office Visit Cardiothoracic Yinka Gordon Malignant sadiq plasm Surgery MD Bebe of right lung, unspecified par t of lung (HCC) (Elle marilee Dx) 02/08/2019 Telephone Cardiothoracic Kip Andre MARTIN Germain 02/01/2019 Orders Only General Surgery Peyton John NP-C 01/26/2019 Surgery Cardiothoracic Yinka Gordon RIGHT ROBOTIC Surgery MD Bebe ASSISTED GREG GALO RIGHT UPPER LOB E AND RIGHT LOWER LOB E WEDGE RESECTION S (therapeutic), PERCUTANIOUS NE EDLE LOCALIZATION, MEDIASTINAL LYM PH NODE DISSECTION , 01/26/2019 Anesthesia Event Cardiothoracic Rosario Flanagan MD Hoffman, Amber 01/26/2019 Hospital Encounter General Internal Yinka Gordon Lung nodules - Medicine MD Bebe 01/28/2019 01/26/2019 Hospital Encounter Radiology Yinka Gordon Lung nodu les; MD Bebe Pre-op testing 01/24/2019 Telephone General Surgery Peyton John NP-C 01/17/2019 Extended Medical General Surgery Yinka Gordon Lung nod ule (Primary Review MD Bebe Dx) 01/12/2019 Lab Lab Yinka Gordon Lung nodules; MD Bebe Pre-op testing 01/12/2019 Office Visit Cardiothoracic Yinka Gordon Lung nodules (Primary Dx); Surgery MD Bebe Pre-op testing 01/12/2019 Hospital Encounter Pulmonology Yinka Gordon Lung nodu les; MD Bebe History of she st cancer; Hemoptysis 01/10/2019 Telephone Cardiothoracic Kip Andre MA 01/09/2019 Telephone Cardiothoracic Fransico, Kip Guerra MA 01/06/2019 Telephone General Surgery Yinka Gordon MD 01/02/2019 Surgery Cardiothoracic Yinka Gordon FLEXIBLE Surgery MD Bebe BRONCHOSCOPY, 01/02/2019 Anesthesia Event Cardiothoracic Ashtyn Villalta Surgery MD Abraham Quinonez Alka ([place]) 01/02/2019 Hospital Encounter Cardiothoracic Yinka Gordon Surgery MD Bebe 12/29/2018 Telephone General Surgery Peyton John NP-C 12/29/2018 Telephone Cardiothoracic Kip Bateman MA 12/28/2018 Telephone General Surgery Peyton John NP-C 12/15/2018 Hospital Encounter Radiology Yinka Gordon Lung nodu les; MD Bebe History of she st cancer; Mediastinal lym phadenopathy; Nonintractable headache, unspecified chronicity pattern, unspecified headache type 12/08/2018 Lab Lab Yinka Gordon Lung nodules; MD Bebe History of she st cancer; Mediastinal lym phadenopathy; Nonintractable headache, unspecified chronicity pattern, unspecified headache type 12/08/2018 Office Visit Cardiothoracic Yinka Gordon Lung nodules (Primary Dx); Surgery MD Bebe History of she st cancer; Mediastinal lym phadenopathy; Nonintractable headache, unspecified chronicity pattern, unspecified headache type 12/07/2018 Hospital Encounter Radiology Yinka Gordon Lung nodu les; MD Bebe History of she st cancer; Hemoptysis 12/07/2018 Telephone Cardiothoracic Kip Andre MA 12/01/2018 Hospital Encounter Radiology Yinka Gordon MD 12/01/2018 Office Visit Cardiothoracic EavnYinka Lung nodules (Primary Dx); Surgery MD Bebe History of she st cancer; Hemoptysis 12/01/2018 Orders Only Cardiothoracic Provider, Kip Velazquez MD 11/30/2018 Orders Only Cardiothoracic Provider, Surgery MD Caroline after 10/30/2018 Family History Medical History Relation Name Comments Diabetes Brother Rei Sampson Erdmier Heart disease Brother Emiliano Lomelimier Heart Attach 201 9 Varicose Veins Brother Emiliano Yanimier Colon cancer Father Ozzy Erdmier Heart disease Father Ozzy Lomelimier Breast cancer Mother Shaina Lomelimier Diabetes Paternal Grandfather Rei Olivaer Breast cancer Sister Tammy Quintanilla Relation Name Status Comments Brother Rei H Erdmier Brother Emiliano Erdmier Father Ozzy Erdmier Mother Shaina Erdmier Paternal Grandfather Rei Erdmier Sister Tammy Quintanilla Social History Tobacco Use Types Packs/Day Years Used Date Former Smoker Cigarettes 2 27 10/22/1966 - 1 06/14/1993 Smokeless Tobacco: Never Used Alcohol Use Drinks/Week oz/Week Comments Not Currently 1 Standard drinks or equivalent 0.0 Never drank very much. Did not like the taste o r effects! Sex Assigned at Date Recorded Female 11/30/2018 8:34 PM CDT Job Start Date Occupation Industry Not on file Not on file Not on file Travel History Travel Start Travel End No recent travel history available. Last Filed Vital Signs Vital Sign Reading Time Taken Comments Blood Pressure 141/66 03/09/2019 10:07 AM CDT Pulse 61 03/09/2019 10:05 AM CDT Temperature 35.8 C (96.5 F) 03/09/2019 10:05 AM CDT Respiratory Rate 17 03/09/2019 10:05 AM CDT Oxygen Saturation 98% 03/09/2019 10:05 AM CDT Inhaled Oxygen Concentration - - Weight 66.3 kg (146 lb 3.2 oz) 03/09/2019 10:05 AM CDT Height 154.9 cm (5' 1") 03/09/2019 10:05 AM CDT Body Mass Index 27.62 03/09/2019 10:05 AM CDT Plan of Treatment Health Maintenance Due Date Last Done Comments BREAST CANCER SCREENING 1996 COLONOSCOPY SCREENING 1996 SHINGLES VACCINES (#1) 1996 65+ PNEUMOCOCCAL VACCINE (1 of 2 - PCV13) 11/10/2011 INFLUENZA VACCINE 12/23/2019 01/04/2019 Implants 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 ESTIMATED GFR Routine 01/28/2019 4:58 Results fo r this AM CDT procedure are i n the results section. PHOSPHORUS LEVEL Routine 01/28/2019 4:58 Results for this AM CDT procedure are i n the results section. MAGNESIUM LEVEL Routine 01/28/2019 4:58 Results for this AM CDT procedure are i n the results section. BASIC METABOLIC PANEL Routine 01/28/2019 4:58 Re sults for this AM CDT procedure are i n the results section. HC COMPLETE BLD COUNT Routine 01/28/2019 4:58 Re sults for this W/AUTO DIFF AM CDT procedure are i n the results section. XR CHEST 1 VW PORTABLE STAT 01/28/2019 4:37 R esults for this AM CDT procedure are i n the results section. XR CHEST 1 VW PORTABLE STAT 01/27/2019 9:41 R esults for this AM CDT procedure are i n the results section. XR CHEST 1 VW PORTABLE STAT 01/27/2019 7:24 R esults for this AM CDT procedure are i n the results section. ESTIMATED GFR Routine 01/27/2019 4:57 Results fo r this AM CDT procedure are i n the results section. HC COMPLETE BLD COUNT Routine 01/27/2019 4:57 Re sults for this W/AUTO DIFF AM CDT procedure are i n the results section. BASIC METABOLIC PANEL Routine 01/27/2019 4:57 Re sults for this AM CDT procedure are i n the results section. XR CHEST 1 VW PORTABLE STAT 01/26/2019 10:13 R esults for this PM CDT procedure are i n the results section. ESTIMATED GFR STAT 01/26/2019 9:17 Results fo r this PM CDT procedure are i n the results section. PARTIAL THROMBOPLASTIN STAT 01/26/2019 9:17 R esults for this TIME (PTT) PM CDT procedure are i n the results section. PROTHROMBIN TIME WITH STAT 01/26/2019 9:17 Re sults for this INR PM CDT procedure are i n the results section. HC COMPLETE BLD COUNT STAT 01/26/2019 9:17 Re sults for this W/AUTO DIFF PM CDT procedure are i n the results section. BASIC METABOLIC PANEL STAT 01/26/2019 9:17 Re sults for this PM CDT procedure are i n the results section. XR CHEST 1 VW PORTABLE STAT 01/26/2019 5:52 R esults for this PM CDT procedure are i n the results section. BRAF, PCR Routine 01/26/2019 4:05 Results for this PM CDT procedure are i n the results section. SURGICAL PATHOLOGY Routine 01/26/2019 4:03 Resul ts for this REQUEST PM CDT procedure are i n the results section. SURGICAL PATHOLOGY Routine 01/26/2019 4:03 Resul ts for this REQUEST PM CDT procedure are i n the results section. SURGICAL PATHOLOGY Routine 01/26/2019 4:03 Resul ts for this REQUEST PM CDT procedure are i n the results section. SURGICAL PATHOLOGY Routine 01/26/2019 4:03 Resul ts for this REQUEST PM CDT procedure are i n the results section. SURGICAL PATHOLOGY Routine 01/26/2019 4:03 Resul ts for this REQUEST PM CDT procedure are i n the results section. GLUCOSE LEVEL, SYRINGE STAT 01/26/2019 3:28 R esults for this PM CDT procedure are i n the results section. IONIZED CALCIUM, STAT 01/26/2019 3:28 Results for this ARTERIAL PM CDT procedure are i n the results section. HEMOGLOBIN, SYRINGE STAT 01/26/2019 3:28 Resu lts for this PM CDT procedure are i n the results section. POTASSIUM, SYRINGE STAT 01/26/2019 3:28 Resul ts for this PM CDT procedure are i n the results section. SODIUM LEVEL, SYRINGE STAT 01/26/2019 3:28 Re sults for this PM CDT procedure are i n the results section. ARTERIAL BLOOD GAS STAT 01/26/2019 3:28 Resul ts for this PM CDT procedure are i n the results section. MISCELLANEOUS REFERRAL Routine 01/26/2019 3:00 R esults for this TEST PM CDT procedure are i n the results section. ARTERIAL LINE Routine 01/26/2019 2:26 Results fo r this PM CDT procedure are i n the results section. KS AN ELECTIVE Routine 01/26/2019 2:24 Results f or this ENDOTRACHEAL AIRWAY PM CDT procedur e are in the results section. GLUCOSE LEVEL, SYRINGE STAT 01/26/2019 2:12 R esults for this PM CDT procedure are i n the results section. HEMOGLOBIN, SYRINGE STAT 01/26/2019 2:12 Resu lts for this PM CDT procedure are i n the results section. IONIZED CALCIUM, STAT 01/26/2019 2:12 Results for this ARTERIAL PM CDT procedure are i n the results section. SODIUM LEVEL, SYRINGE STAT 01/26/2019 2:12 Re sults for this PM CDT procedure are i n the results section. POTASSIUM, SYRINGE STAT 01/26/2019 2:12 Resul ts for this PM CDT procedure are i n the results section. ARTERIAL BLOOD GAS, STAT 01/26/2019 2:12 Resu lts for this CORRECTED PM CDT procedure are i n the results section. GLUCOSE LEVEL, SYRINGE STAT 01/26/2019 1:10 R esults for this PM CDT procedure are i n the results section. IONIZED CALCIUM, STAT 01/26/2019 1:10 Results for this ARTERIAL PM CDT procedure are i n the results section. POTASSIUM, SYRINGE STAT 01/26/2019 1:10 Resul ts for this PM CDT procedure are i n the results section. HEMOGLOBIN, SYRINGE STAT 01/26/2019 1:10 Resu lts for this PM CDT procedure are i n the results section. ARTERIAL BLOOD GAS, STAT 01/26/2019 1:10 Resu lts for this CORRECTED PM CDT procedure are i n the results section. SODIUM LEVEL, SYRINGE STAT 01/26/2019 1:10 Re sults for this PM CDT procedure are i n the results section. CT CHEST WO CONTRAST Routine 01/26/2019 8:21 Lung nodul es Results for this AM CDT Pre-op testing procedure are in the results section. PREPARE RBC Routine 01/12/2019 4:05 Results for this PM CDT procedure are i n the results section. ESTIMATED GFR Routine 01/12/2019 4:05 Results fo r this PM CDT procedure are i n the results section. HC COMPLETE BLD COUNT Routine 01/12/2019 4:05 Lung nodu les Results for this W/AUTO DIFF PM CDT Pre-op testing procedure are in the results section. TYPE AND SCREEN Routine 01/12/2019 4:05 Lung nodules Results for this PM CDT Pre-op testing procedure are in the results section. COMPREHENSIVE METABOLIC Routine 01/12/2019 4:05 Lung no dules Results for this PANEL PM CDT Pre-op testing procedure are in the results section. PROTHROMBIN TIME WITH Routine 01/12/2019 4:05 Lung nodu les Results for this INR PM CDT Pre-op testing procedure are in the results section. PARTIAL THROMBOPLASTIN Routine 01/12/2019 4:05 Lung nod ules Results for this TIME (PTT) PM CDT Pre-op testing procedure are in the results section. SPIROMETRY, DIFFUSION Routine 01/12/2019 12:21 Lung nodu les PM CDT History of breast cancer Hemoptysis SPIROMETRY PRE AND POST Routine 01/12/2019 11:20 Lung no dules Results for this WITH BRONCHILATOR, AM CDT History of breast proc edure are in DIFFUSION, LUNG VOLUMES cancer the results Hemoptysis section. CYTOLOGY Routine 01/02/2019 4:30 Results for this (NON-GYNECOLOGICAL) PM CDT procedur e are in REQUEST the results section. XR CHEST 1 VW PORTABLE STAT 01/02/2019 3:10 R esults for this PM CDT procedure are i n the results section. CYTOLOGY Routine 01/02/2019 2:30 Results for this (NON-GYNECOLOGICAL) PM CDT procedur e are in REQUEST the results section. CYTOLOGY Routine 01/02/2019 2:00 Results for this (NON-GYNECOLOGICAL) PM CDT procedur e are in REQUEST the results section. ANESTHESIA INTUBATION Routine 01/02/2019 1:47 PM CDT Procedure Note - Noelle Villalta MD - 01/02/2019 1:47 PM CDT Airway Performed by: Penny Villalta MD Authorized by: Liam Villalta MD Location: OR Anesthesiologist: Damion Villalta MD Resident/[employer] OFFICIAL/AA: Camden Portillo MD Performed by: resident/[employer] OFFICIAL/AA Preoxygenated with 100% O2: Yes Mask Ventilation: Easy mask Final Airway Type: Endotrac heal airway Final Endotracheal Airway: ETT Cuffed: Yes Technique Used: Direct phoebe ngoscopy Devices/Methods Used in Plac ement: Intubating stylet Insertion Site: Oral Blade Type: Kishan Laryngoscope Blade/Videolary ngoscope Blade Size: 3 ETT Size (mm): 8.0 Measured from: Lips ETT to Lips (cm): 22 Placement Verified by: CO2 d etection, direct visualization and equal breath sounds Laryngoscopic view: Grade I - full view of glottis Number of Attempts at Approa ch: 1 MRI BRAIN W WO Routine 12/15/2018 Lung nodules Results for CONTRAST 11:00 AM CDT History of breas t cancer this Mediastinal lymp hadenopathy procedure Nonintractable headache, are in the unspecified chronicity robertte rn, results unspecified headache type se ction. ESTIMATED GFR Routine 12/08/2018 Results for 2:23 PM CDT this procedure are in the results section. HC COMPLETE BLD Routine 12/08/2018 Lung nodules Results for COUNT W/AUTO DIFF 2:23 PM CDT History of ronan ast cancer this Mediastinal lymp hadenopathy procedure Nonintractable headache, are in the unspecified chronicity patte rn, results unspecified headache type se ction. TYPE AND SCREEN Routine 12/08/2018 Lung nodules Results for 2:23 PM CDT History of breas t cancer this Mediastinal lymp hadenopathy procedure Nonintractable headache, are in the unspecified chronicity patte rn, results unspecified headache type se ction. COMPREHENSIVE Routine 12/08/2018 Lung nodules Results for METABOLIC PANEL 2:23 PM CDT History of breas t cancer this Mediastinal lymp hadenopathy procedure Nonintractable headache, are in the unspecified chronicity patte rn, results unspecified headache type se ction. PROTHROMBIN TIME Routine 12/08/2018 Lung nodules Results for WITH INR 2:23 PM CDT History of breas t cancer this Mediastinal lymp hadenopathy procedure Nonintractable headache, are in the unspecified chronicity patte rn, results unspecified headache type se ction. PARTIAL Routine 12/08/2018 Lung nodules Results for THROMBOPLASTIN 2:23 PM CDT History of breas t cancer this TIME (PTT) Mediastinal lymp hadenopathy procedure Nonintractable headache, are in the unspecified chronicity patte rn, results unspecified headache type se ction. PET CT SKULL BASE Routine 12/07/2018 Lung nodules Results for TO MID THIGH 2:15 PM CDT History of breas t cancer this Hemoptysis procedure are in the results section. POC GLUCOSE Routine 12/07/2018 Results for 1:01 PM CDT this procedure are in the results section. CT CHEST EXTERNAL Routine 11/25/2018 Results fo r STUDY 2:49 PM CDT this procedure are in the results section. CT CHEST W Routine 11/25/[address] CHEST W Routine 11/25/2018 CONTRAST after 10/30/2018 Results XR Chest 1 Vw Portable (01/28/2019 11:18 AM CDT)Only the most recent of7 results within the time period is included. Specimen Narrative Performed At EXAMINATION: XR CHEST 1 VW PORTABLE [facility] INDICATION: Chest tube removal COMPARISON: 01/28/2019 IMPRESSION: Right chest tube has been removed. Trace right pneumot horax has decreased in size. Patchy atelectasis, airspace disease, and pulmonary ed maria c has slightly improved. Unchanged cardiomediastinal silhouette and osseous str uctures. Trace soft tissue emphysema persists over the right neck and upper chest wall. [facility]-[id number] Procedure Note Hm Interface, Radiology Results Incoming - 01/28/2019 11:40 AM CDT EXAMINATION: XR CHEST 1 VW PORTABLE INDICATION: Chest tube removal COMPARISON: 01/28/2019 IMPRESSION: Right chest tube has been removed. Trace right pneumothorax has decreased in size. Patchy atelectasis, airspace disease, an d pulmonary edema has slightly improved. Unchanged cardiomediastinal silhouette a nd osseous structures. Trace soft tissue emphysema persists over the right neck and upper chest wall. [facility]-[id number] Performing Organization Address [facility] Cent[facility]ode Phone Number [facility] [address] [place] [address] Estimated GFR (01/28/2019 4:58 AM CDT)Only the most recent of5 resultswithin the time period is included. Estimated GFR 64 mL/min/1.73 [facility] Comment: m2 HOSPITAL Catergory Units Interpretation G1 >=90 Normal or high G2 60-89 Mildly decreased G3a 45-59 Mildly to moderately decreas ed G3b 30-44 Moderately to severely decre ased G4 15-29 Severely decreased G5 <15 Kidney failure The eGFR was calculated using the Chronic Kidney Disea se Epidemiology Collaboration (CKD-EPI) equation. Interpretation is based on recommendations of the National Kidney Foundation-Kidney Disease Outcomes Christiano lity Initiative (NKF-KDOQI) published in 2014. Specimen Plasma specimen Performing Organization Address [facility] Centercode Phone Number [facility] DEPARTMENT OF PATHOLOGY AND [address], [place] [address] GENOMIC MEDICINE [facility] [address] [place] [address] CBC with platelet and differential (01/28/2019 4:58 AM CDT)Only the most recent of5 resultswithin the time period is included. WBC 14.13 (H) 4.50 - 11.00 [facility] RBC 2.77 (L) 4.20 - 5.50 [facility] HGB 8.2 (L)Comment: 12.0 - 16.0 [facility] Results double g/dL HOSPITAL checked. HCT 25.4 (L) 37.0 - 47.0 % [facility] MCV 91.7 82.0 - 100.0 [facility] MCH 29.6 27.0 - 34.0 [facility] MCHC 32.3 31.0 - 37.0 [facility] g/dL [facility] RDW - SD 43.5 37.0 - 55.0 [facility] MPV 13.0 8.8 - 13.2 fL [facility] Platelet count 184 150 - 400 [facility] k/uL HOSPITAL Nucleated RBC 0.00 /100 WBC [facility] Neutrophils 80.9 (H) 39.0 - 69.0 % [facility] Lymphocytes 10.8 (L) 25.0 - 45.0 % [facility] Monocytes 7.5 0.0 - 10.0 % [facility] Eosinophils 0.3 0.0 - 5.0 % [facility] Basophils 0.1 0.0 - 1.0 % [facility] Immature granulocytes 0.4Comment: 0.0 - 1.0 % [facility] "[facility] granulocytes" (promyelocytes, myelocytes, metamyelocytes) Specimen Blood Performing Organization Address [facility] Centerconm Phone Number [facility] DEPARTMENT OF PATHOLOGY AND [address] [place] [phone] Phosphorus level (01/28/2019 4:58 AM CDT) Pathologist Sig nature Phosphorus 2.7 2.4 - 4.5 mg/dL [facility] Specimen Plasma specimen Performing Organization Address [facility] Phone Number [facility] DEPARTMENT OF PATHOLOGY AND [address] [place] [phone] Magnesium level (01/28/2019 4:58 AM CDT) Pathologist Sig nature Magnesium 2.1 1.6 - 2.4 mg/dL [facility] Specimen Plasma specimen Performing Organization Address [facility] Phone Number [facility] DEPARTMENT OF PATHOLOGY AND [address] [place] [phone] Basic metabolic panel (01/28/2019 4:58 AM CDT)Only the most recent of3 results within the time period is included. Pathologist Sig nature Sodium 135 135 - 148 mEq/L [facility] L Potassium 3.9 3.5 - 5.0 mEq/L [facility] L Chloride 97 (L) 98 - 112 mEq/L [facility] CO2 25 24 - 31 mEq/L [facility] Anion gap 13@ANIO 7 - 15 mEq/L [facility] BUN 19 8 - 23 mg/dL [facility] Creatinine 0.90 0.50 - 0.90 mg/dL [facility] Glucose 116 (H) 65 - 99 mg/dL [facility] Calcium 9.1 8.8 - 10.2 mg/dL [facility] Specimen Plasma specimen Performing Organization Address [facility] Centercode Phone Number [facility] DEPARTMENT OF PATHOLOGY AND [address] [place] [phone] Partial thromboplastin time, activated (01/26/2019 9:17 PM CDT)Only the most recent of3 resultswithin the time period is included. [facility] PTT 28.6 23.0 - 36.0 [facility] Comment: [facility] PTT therapeutic range for unfractionated heparin is 61.0-112.0 seconds which corresponds to Anti-Xa 0.3-0.7 U/ml. Specimen Blood Performing Organization Address [facility] [facility] Phone Number [facility] DEPARTMENT OF PATHOLOGY AND [address] [place] [phone] [place] [phone] Prothrombin time with INR (01/26/2019 9:17 PM CDT)Only the most recent of3 resultswithin the time period is included. [facility] Prothrombin time 14.8 (H) 11.5 - 14.5 [facility] INR 1.2 ADRIAN Comment: BUDDHIST The International Normalized Ratio (INR) is a therapeu [facility] HOSPITAL monitoring tool for patients who are stable on oral anticoagulant therapy. An INR of 2.0-3.0 is suggested for deep vein thrombosis/pulmonary embolism. Specimen Blood Performing Organization Address City/[facility] Phone Number [facility] DEPARTMENT OF PATHOLOGY AND [address] [place] [address] [place] [address] BRAF, PCR (01/26/2019 4:05 PM CDT) Pathologist Sig nature BRAF, PCR Wild Type [facility] BRAF, PCR See link below for [facility] Lab HOSPITAL ReportComment: Specimen Narrative Performed At METHODOLOGY: [facility] For surgical specimens, manual microdissection was performed on B3 (60%). Specimens with the minimum of 5 0% tumor cells in a microdissection target are accepted f or the analysis. DNA was amplified with primers flanking the reported gene sequences. DNA sequences were determined on the INXPOARRAY us ing MALDI-TOF mass spectrometry. Performing Organization Address City/State/Zipcode Phone Number [facility] DEPARTMENT OF PATHOLOGY AND [address] [place] [address] Surgical pathology request (01/26/2019 4:03 PM CDT)Only the most recent of5 resultswithin the time period is included. [facility] DEPARTMENT OF PATHOLOGY AND GENOMIC MEDICINE Surgical pathology See link below for [facility] DEPARTMENT O F report PDF Lab Report PATHOLOGY AND GENOMIC MEDICINE Result status This is Supplemental [facility] DEPARTMENT OF Report for PATHOLOGY AND [id number] GENOMIC MEDICINE Specimen Performing Organization Address [facility] Phone Number [facility] DEPARTMENT OF PATHOLOGY AND [address] [place] [address] [phone] GENOMIC MEDICINE Sodium level, syringe (01/26/2019 3:28 PM CDT)Only the most recent of3 results within the time period is included. Pathologist Sig nature Sodium, syringe 137 135 - 148 mEq/L [facility] Specimen Blood Performing Organization Address City/State/Zipcode Phone Number [facility] DEPARTMENT OF PATHOLOGY AND [address] [place] [address] [phone] [facility] MEDICINE [address] [address] Potassium, syringe (01/26/2019 3:28 PM CDT)Only the most recent of3 results within the time period is included. Pathologist Sig nature Potassium, syringe 4.2 3.5 - 5.0 mEq/L [facility] Specimen Blood Performing Organization Address City/[facility]/Zipcode Phone Number [facility] DEPARTMENT OF PATHOLOGY AND [address] [place] [address] [phone] [address] Ionized calcium, arterial (01/26/2019 3:28 PM CDT)Only the most recent of3 resultswithin the time period is included. Pathologist Sig nature Ionized calcium, 1.16 1.11 - 1.32 [facility] arterial mmol/L [facility]ITAL Specimen Blood Performing Organization Address [facility] Phone Number [facility] DEPARTMENT OF PATHOLOGY AND [address] [place] [address] [place] [phone] Hemoglobin, syringe (01/26/2019 3:28 PM CDT)Only the most recent of3 results within the time period is included. Pathologist Sig nature Hemoglobin, syringe 11.9 (L) 12.0 - 16.0 g/dL [facility] Specimen Blood Performing Organization Address [facility] Phone Number [facility] DEPARTMENT OF PATHOLOGY AND [address] [place] [phone] [place] [phone] Glucose level, syringe (01/26/2019 3:28 PM CDT)Only the most recent of3 results within the time period is included. Pathologist Sig nature Glucose, syringe 167 (H) 65 - 99 mg/dL [facility] Specimen Blood Performing Organization Address [facility] Phone Number [facility] DEPARTMENT OF PATHOLOGY AND [address] [place] [address] [place] [phone] Arterial blood gas (01/26/2019 3:28 PM CDT) Pathologist Sig nature pH, arterial 7.31 (L) 7.35 - 7.45 [facility] pCO2, arterial 45 35 - 45 mmHg [facility] pO2, arterial 140 (H) 80 - 90 mmHg [facility] Bicarbonate, 21.7 21.0 - 28.0 [facility] mmol/L HOSPITAL Base excess, -4 (L) -2 - 2 mEq/L [facility] O2 saturation, 99 95 - 100 % [facility] arterial HOSPITAL Specimen Blood Performing Organization Address City/[facility]/Zipcode Phone Number [facility] DEPARTMENT OF PATHOLOGY AND [address] [place] [phone] GENOMIC MEDICINE [address] [address] Miscellaneous referral test (01/26/2019 3:00 PM CDT) Mis test name [employer] MET SHOWN ABOVE [facility] test result SEE NOTE SHOWN ABOVE Comment: MET FISH Sample type: Paraffin, lung Case# [id number] RESULTS: NEGATIVE Interpretation: MET Amplification: Not Detected MET(7q31) signals per nucleus: 2.9 CEN7 signals per nucleus: 2.7 MET-CEN7 signal ratio: 1.1 An H&E stained slide was reviewed by a pathologist to identify target areas containing invasive tumor. FISH analysis was performed within the marked target areas using a dual-probe FISH assay to detect M ET overexpression. Results show no evidence of MET amplification with a M ET/CEN7 ratio of <2.0. This is a NEGATIVE result. This MET FISH assay was scored manually by a certified certified cytotechnologist. Two or more independent areas containing invasiv e tumor were analyzed and the technical results underwent further review for air quality technician purposes. Reference range: Positive: MET(7q31) to CEN7 signal ration is >/= 2.0 o r when 10% of tumor cells contain clusters of >15 copies per cell of MET ( 7q31) signals. Negative: MET(7q31) to CEN7 signal ratio is <2.0 Equivocal: MET copy number >/=5.0 and MET/CEN7 ratio < 2.0 Nuclei scored: 50 Test(s) performed by: [employer] 5 KARLOS Knowles Specimen Narrative [facility] AND GENOMIC [facility] MEDICINE [id number] SERVICE DATE: 01/26/19 Performing Organization Address City/State/Zipcode Phone Number [facility] DEPARTMENT OF PATHOLOGY [place], [place] [address] [employer] MEDICINE SHOWN ABOVE Arterial line (01/26/2019 2:26 PM CDT) Narrative Performed At Nikko Clark MD 01/26/2019 2 :29 PM Arterial line Performed by: Nikko Clark MD Authorized by: Juan Guzman MD Patient Location: OR Start Time: 01/26/2019 12:56 PM End Time: 01/26/2019 12:57 PM Staff: Anesthesiologist: Juan Guzman MD Performed by: Anesthesiologist Pre-procedure: patient identified, site and side verified, risks and benefits discussed, procedure verified, patient position confirmed and pre-op evaluation complete MSBT: antiseptic used and hand hygiene p erformed Indications: Indications: multiple ABGs and hemody namic monitoring Anesthesia: Anesthesia: General Procedure Details: Arterial Line placement: Placed pos t induction Line placement site: Radial Line placement side: Right Arterial line gauge: 20 G Ultrasound guidance used: Yes Post-procedure: Post-procedure: Sterile dressing ap plied Post procedure circulation, sensation , movement: Normal Patient tolerance: Patient tolerate d the procedure well with no immediate complications Airway (01/26/2019 2:24 PM CDT) Narrative Performed At Nikko Clark MD 01/26/2019 3 :34 PM Airway Date/Time: 01/26/2019 12:57 PM Performed by: Nikko Clark MD Authorized by: Juan Guzman MD Location: OR Urgency: Elective Difficult Airway: No Resident/[employer] OFFICIAL/AA: Nikko Clark M D Performed by: resident/[employer] OFFICIAL/AA Preoxygenated with 100% O2: Yes Mask Ventilation: Easy mask Final Airway Type: Endotracheal airway Final Endotracheal Airway: ETT - doubl e lumen left Cuffed: Yes Technique Used: Direct laryngoscopy Devices/Methods Used in Placement: Int ubating stylet Insertion Site: Oral Blade Type: Delgado Laryngoscope Blade/Videolaryngoscope Leandro de Size: 2 ETT Double Lumen (fr): 37 Placement Verified by: fiber optic visua lization Laryngoscopic view: Grade I - full view of glottis Arterial blood gas, corrected (01/26/2019 2:12 PM CDT)Only the most recent of2 resultswithin the time period is included. Pathologist Sig nature pH, arterial 7.32 (L) 7.35 - 7.45 [facility] pCO2, arterial 50 (H) 35 - 45 mmHg [facility] pO2, arterial 172 (H) 80 - 90 mmHg [facility] Temperature, Celsius 37.0 Degrees C [facility] O2 saturation, 99 95 - 100 % [facility] arterial [facility]OSPITAL pH, arterial 7.32 [facility] corrected [facility]OSPITAL pCO2, arterial 50 mmHg [facility] HOSPITAL pO2, arterial 172 mmHg [facility] HOSPITAL Base excess, arterial -1 -2 - 2 mEq/L [facility] Specimen Blood Performing Organization Address City/State/Zipcode Phone Number [facility] DEPARTMENT OF PATHOLOGY AND [address] [place], [place] [phone] GENOMIC MEDICINE [facility] [address] [place] [address] CT Chest Wo Contrast (01/26/2019 8:21 AM CDT) Specimen Narrative Performed At EXAMINATION: [facility] CT CHEST WO CONTRAST CLINICAL HISTORY: R91.8 Other nonspecific abnormal finding of lung field , Z01.818 Encounter for other preprocedural examin ation, lung nodules TECHNIQUE: Multiple axial images of the chest were obtained witho ut intravenous contrast. The lack of intravenous contrast reduces the sensitivity of detecting solid organ disease and evaluating vasculatu re. Sagittal and coronal computerized reformatted images were also obtained. CT imaging was performed with iterative reconstruction techniques and/or automated exposure control to reduce rad iation dose. COMPARISON: Chest CT 11/25/2018, PET CT 12/07/2018 FINDINGS: 1. A malignant-appearing dominant juxtapleural right upper lobe nodule currently measures 19 x 18 mm and is sta ble. 2. Multiple additional bilateral pulmonary nodules a re for the most part slightly larger, for example a 16 mm left lower l obe spiculated nodule on image 86 was previously 12 mm, a superior se gment left lower lobe 11 mm nodule on image 59 was previo usly 7 mm. 3. A 15 mm nodule with central microcatheter cavitat ion in the right lower lobe on image 106 is stable. 4. No new nodule is seen. There is no consolidation or groundglass. 5. The heart size is normal. 6. A celiac 13 mm lymph node on image 117 is stable. A left upper paratracheal 1.8 cm lymph node is approximately stable (image 25), although somewhat suboptimally visualized due to lack of contrast. There are several calcified granulomatous node s in the mediastinum and right hilum. 7. Irregular nodularity in the bilateral outer breas ts (images 72, 74), axillary surgical clips on the left , are stable. 8. There is no suspicious skeletal fin ding. IMPRESSION: 1. Dominant right upper lobe lung nodule, and right lower lobe cavitary nodule, are stable. Most of the other nodules are enlarging. Findings are worrisome for progressive m alignancy. 2. High left paratracheal and celiac a xis lymph nodes are stable. 3. There are no new sites of disease. [id number] Procedure Note Hm Interface, Radiology Results Incoming - 01/26/2019 8:52 AM CDT EXAMINATION: CT CHEST WO CONTRAST CLINICAL HISTORY: R91.8 Other nonspecific abnormal finding of lung field, Z01.818 Encounter for other preprocedural examination, lung nodules TECHNIQUE: Multiple axial images of the chest were obtained without intravenous contrast. The lack of intravenous contrast reduces the sensitivity of detecting solid organ disease and evaluating vasculature. Sagittal and coronal computerized reformatted images were also obtained. CT imaging was performed with iterative reconstruction techniques and/or automated exposure control to reduce radiation dose. COMPARISON: Chest CT 11/25/2018, PET CT 12/07/2018 FINDINGS: 1. A malignant-appearing dominant juxta pleural right upper lobe nodule currently measures 19 x 18 mm and is stable. 2. Multiple additional bilateral pulmon chelly nodules are for the most part slightly larger, for example a 16 mm left lower lobe spiculated nodule on image 86 was previously 12 mm, a superior segment left lower lobe 11 mm nodule on image 59 was previously 7 mm. 3. A 15 mm nodule with central microcat heter cavitation in the right lower lobe on image 106 is stable. 4. No new nodule is seen. There is no c onsolidation or groundglass. 5. The heart size is normal. 6. A celiac 13 mm lymph node on image 1 17 is stable. A left upper paratracheal 1.8 cm lymph node is approximately stable (image 25), although somewhat suboptimally visualized due to lack of contrast. There are several calcified granulomatous node s in the mediastinum and right hilum. 7. Irregular nodularity in the bilatera l outer breasts (images 72, 74), axillary surgical clips on the left, are stable. 8. There is no suspicious skeletal find ing. IMPRESSION: 1. Dominant right upper lobe lung nodul e, and right lower lobe cavitary nodule, are stable. Most of the other nodules are enlarging. Findings are worrisome for progressive malignancy. 2. High left paratracheal and celiac ax is lymph nodes are stable. 3. There are no new sites of disease. [id number] Performing Organization Address [facility]/Zipcode Phone Number [facility] [address] [place] [phone] Prepare RBC (01/12/2019 4:05 PM CDT) Product name Red Blood Cells [facility] Unit number [id number] [facility] Product code [id number] [facility] Dispense status Returned to BB not [facility] transfused [facility]OSPITAL Blood expiration [facility] Blood type code 6200 [facility] Blood type A POSITIVE [facility] Product name Red Blood Cells [facility], [facility] Unit number [id number] [facility] Product code [id number] [facility] Dispense status Returned to BB not [facility] transfused [facility]OSPITAL Blood expiration [facility] Blood type code [address] [place] [address] Blood type A POSITIVE [facility] Specimen Performing Organization Address [facility] Phone Number [facility] DEPARTMENT OF PATHOLOGY AND [address] [place] [phone] GENOMIC MEDICINE [address] [address] Type and screen (01/12/2019 4:05 PM CDT)Only the most recent of2 resultswithin the time period is included. Pathologist Sig nature ABO grouping A [facility] Rh type POS [facility] Antibody screen (gel) NEG [facility] Specimen Blood Performing Organization Address [facility] Phone Number [facility] DEPARTMENT OF PATHOLOGY AND [address] [place] [address] [phone] [address] Comprehensive metabolic panel (01/12/2019 4:05 PM CDT)Only the most recent of2 resultswithin the time period is included. Sodium 141 135 - 148 [facility] mEq/L [facility] Potassium 4.0 3.5 - 5.0 [facility] mEq/L [facility] Chloride 103 98 - 112 [facility] mEq/L [facility] CO2 28 24 - 31 mEq/L [facility] Anion gap 10@ANIO 7 - 15 mEq/L [facility] BUN 15 8 - 23 mg/dL [facility] Creatinine 0.83 0.50 - 0.90 [facility] mg/dL [facility] Glucose 86 65 - 99 mg/dL [facility] Calcium 9.5 8.8 - 10.2 [facility] mg/dL [facility] Protein 7.7 6.3 - 8.3 [facility] Comment: g/dL [facility]PITAL [place] 4.6-7.0 g/dL 1 week 4.4-7.6 g/dL 7 months-1year 5.1-7.3 g/dL 1-2 years 5.6-7.5 g/dL >3 years 6.0-8.0 g/dL 18-150 6.3-8.3 g/dL Albumin 4.0 3.5 - 5.0 [facility] g/dL [facility] A/G ratio 1.1 0.7 - 3.8 [facility] Alkaline phosphatase 70 35 - 104 U/L [facility] AST 21 10 - 35 U/L [facility] ALT 28 5 - 50 U/L [facility] Total bilirubin 0.3 0.0 - 1.2 [facility] mg/dL [facility] Specimen Plasma specimen Performing Organization Address City/State/Zipcode Phone Number [facility] DEPARTMENT OF PATHOLOGY AND [address] [place] [phone] GENOMIC MEDICINE [address] [address] Spirometry pre & post w/ bronchodilator, diffusion, lung volumes (01/12/2019 11:20 AM CDT) Pathologist Sig nature FEV1 Pre 1.71 1.47 - 2.57 L [facility] FEV1/FVC % Pre 75.01 65.72 - 85.30 % [facility] FVC Pre 2.28 2.04 - 3.33 L [facility] PEF Pre 5.80 3.58 - 6.80 L/s [facility] FEF 25-75% Pre 1.08 0.53 - 2.85 L/s [facility] DLCO Pre 13.83 12.97 - 25.97 [facility] ml/(min*mmHg) DL/VA Pre 3.90 3.03 - 5.67 [facility] ml/(min*mmHg*L) VA SB Pre 3.55 3.63 - 5.84 L [facility] DLCOc Pre 13.83 12.97 - 25.97 [facility] ml/(min*mmHg) KCOc SB Pre 3.90 3.03 - 5.67 [facility] ml/(min*mmHg*L) Hb Pre 13.40 g(Hb)/dL [facility] FEV1 Predicted 2.02 [facility] FEV1 LLN 1.47 [facility] FEV1 % Pre of Predicted 84.9 % [facility] FVC Predicted 2.68 [facility] FVC LLN 2.04 [facility] FVC % Pre of Predicted 85.1 % [facility] FEV1/FVC % Predicted 76 [facility] FEV1/FVC % LLN 66 [facility] FEV1/FVC % Pre of 99.3 % [facility] Predicted FEF 25-75% Predicted 1.69 [facility] FEF 25-75% LLN 0.53 [facility] FEF 25-75% % Pre of 63.6 % [facility] Predicted PEF Predicted 5.19 [facility] PEF LLN 3.58 [facility] PEF % Pre of Predicted 111.7 % [facility] DLCO Predicted 19.47 [facility] DLCO LLN 12.97 [facility] DLCO % Pre of Predicted 71.0 % [facility] DLCOc Predicted 19.47 [facility] DLCOc LLN 12.97 [facility] DLCOc % Pre of Predicted 71.0 % [facility] DL/VA Predicted 4.35 [facility] DL/VA LLN 3.03 [facility] DL/VA % Pre of Predicted 89.6 % [facility] KCOc SB Predicted 4.35 [facility] KCOc SB LLN 3.03 [facility] KCOc SB % Pre of 89.6 % [facility] Predicted VA SB Predicted 4.73 [facility] VA SB LLN 3.63 [facility] VA SB % Pre of Predicted 75.0 % [facility] Specimen Performing Organization Address City/State/Zipcode Phone Number [facility] [address] [place] [address] Cytology (non-gynecological) request (01/02/2019 4:30 PM CDT)Only the most recent of3 resultswithin the time period is included. [facility] DEPARTMENT OF PATHOLOGY AND GENOMIC MEDICINE Cytology See link below [facility] DEPARTMENT OF (non-gynecological) for PDF Lab PATHOLOGY AND report Report GENOMIC MEDICINE Result status This is Final [facility] DEPARTMENT OF Report for PATHOLOGY AND [id number] GENOMIC MEDICINE Specimen Performing Organization Address City/State/Zipcode Phone Number [facility] DEPARTMENT OF PATHOLOGY AND [address] [place], [place] [address] GENOMIC MEDICINE MRI Brain W Wo Contrast (12/15/2018 11:00 AM CDT) Specimen Narrative Performed At This result has an attachment that is no t available. EXAMINATION: MRI BRAIN W WO CONTRAST [facility] CLINICAL HISTORY: R91.8 Other nonspeci fic abnormal finding of lung field, Z85.3 Personal history of malignant neoplasm of breast, Headache acute normal neuro exam, hx of breast cancer now with pulmonary nodules COMPARISON: [facility]G PET/CT on 12/07/2018. TECHNIQUE: Standard brain MRI without and with intrave nous gadolinium contrast. FINDINGS: No evidence of acute infarction, hemorrh age, mass lesion, or abnormal enhancement. Mild nonspecific areas of T2 prolongation in the periventricular, deep, and subcortical white matter. Ventricles, sulci, and cisterns are age- appropriate in size and configuration. No extra-axial fluid collection. Flow voids of the major intracranial vessels are intact. Visualized paranasal sinuses and mastoid air cells are clear. Bilateral intraocular lens implants. Bones and soft tissues are unremarkable. IMPRESSION: 1. No acute intracranial abnormality. No evidence of i ntracranial metastasis. 2. Mild nonspecific white matter lesions , probably related to chronic ischemia from small vessel disease. [id number] Procedure Note Interface, Radiology Results Incoming - 12/15/2018 12:54 PM CDT EXAMINATION: MRI BRAIN W WO CONTRAST CLINICAL HISTORY: R91.8 Other nonspecif ic abnormal finding of lung field, Z85.3 Personal history of malignant neoplasm of breast, Headache acute normal neuro exam, hx of breast cancer now with pulmonary nodules COMPARISON: FDG PET/CT on 12/07/2018. TECHNIQUE: Standard brain MRI without an d with intravenous gadolinium contrast. FINDINGS: No evidence of acute infarction, hemorrh age, mass lesion, or abnormal enhancement. Mild nonspecific areas of T2 prolongation in the periventricular, deep, and subcortical white matter. Ventricles, sulci, and cisterns are age- appropriate in size and configuration. No extra-axial fluid collection. Flow voids of the major intracranial vessels are intact. Visualized paranasal sinuses and mastoid air cells are clear. Bilateral intraocular lens implants. Bones and soft tissues are unremarkable. IMPRESSION: 1. No acute intracranial abnormality. No evidence of intracranial metastasis. 2. Mild nonspecific white matter lesions , probably related to chronic ischemia from small vessel disease. [id number] Performing Organization Address City/State/Zipcode Phone Number [facility] [address] [place] [address] PET/CT Skull Base To Mid Thigh (12/07/2018 2:15 PM CDT) Specimen Narrative Performed At PROCEDURE: [facility] INDICATION: Restaging breast cancer. Subsequent tr eatment strategy. Evaluate pulmonary nodules. Initial treatment strategy. TECHNIQUE: Blood glucose measured at the time of inj ection was 79 mg/dL. The patient was then injected with 11.6 mCi of 18F-FDG, IV. Approximately one hour later, PET images were acquir ed from the skull base to the mid thighs. Corresponding, l ow dose, non-contrast CT scanning was performed as part of the attenuation correction process. Automated dose exp osure control was utilized. COMPARISON: Outside chest CT 11/25/2018, showing bilat eral pulmonary nodules, the largest of which measures 2 cm, seen in t he right upper lobe. FINDINGS: Head and neck: No suspicious brain uptake. Normal uptake in the visualized sinuses, orbits, nasopharynx, and oropharyn x. Uptake by the larynx is normal. No suspicious neck l ymph node uptake. Chest: Left upper paratracheal lymph node demonstrat es an SUV of 3.8 and measures 2.1 cm x 1.5 cm. Right lower paratrache al lymph node demonstrates an SUV of 5.4. It measures approximatel y 1.8 cm x 1.5 cm. Right hilar lymph node demonstrates an SUV of 6.2. Subpleural nodule in the right upper lobe de monstrates an SUV of 7.9. Smaller nodules noted in the lower lobes not ed on comparison CT demonstrate less pronounced uptake. Right lower l obe nodule demonstrates an SUV of 2.1 and measures 1.6 cm. Activity is more pronounced on the non-corrected image s, however. Left lower lobe nodule demonstrates an SUV of 2.3 and measures 1.3 cm. Abdomen: Normal uptake in the stomach, spleen, pancr eas, liver, and adrenal glands. No abnormal retroperitoneal or mesen teric lymph node uptake. Prominent celiac lymph node demonstrates an SUV of 3.3 and measures 1.2 cm x 0.8 cm. Pelvis: No suspicious pelvic sidewall or inguinal lymph node uptake. Review of the osseous structures demonst rates no suspicious uptake. IMPRESSION: 1. 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 Th is process appears more aggressive. 2. Less pronounced, but abnormal, uptake within smal ler pulmonary nodules and a left upper paratracheal lymph node are s uggestive of a separate process, also likely malignant. Similarly, a celiac lymph node demonstrates similar uptake, likely related to metastatic disease. This process ap pears less aggressive. [facility]-[id number] Procedure Note [facility], Radiology Results Incoming - 12/07/2018 3:30 PM CDT PROCEDURE: PET CT SKULL BASE TO MID THIGH INDICATION: Restaging breast cancer. S ubsequent treatment strategy. Evaluate pulmonary nodules. Initial treatment strategy. TECHNIQUE: Blood glucose measured at e time of injection was 79 mg/dL. The patient was then injected with 11.6 mCi of 18F-FDG, IV. Approximately one hour later, PET images were acquired from the skull base to the mid thighs. Corresponding, low dose, non-contrast CT scanning was performed a s part of the attenuation correction process. Automated dose exposure control was utilized. COMPARISON: Outside chest CT 11/25/2018, showing bilateral pulmonary nodules, the largest of which measures 2 cm, seen in the right upper lobe. FINDINGS: Head and neck: No suspicious brain upta ke. Normal uptake in the visualized sinuses, orbits, nasopharynx, and oropharynx. Uptake by the larynx is normal. No suspicious neck lymph node uptake. Chest: Left upper paratracheal lymph no de demonstrates an SUV of 3.8 and measures 2.1 cm x 1.5 cm. Right lower paratracheal lymph node demonstrates an SUV of 5.4. It measures approximately 1.8 cm x 1.5 cm. Right hilar lymph node demonstrates an S UV of 6.2. Subpleural nodule in the right upper lobe demonstrates an SUV of 7.9. Smaller nodules noted in the lower lobes noted on comparison CT demonstrate less pronounced uptake. Right lower lobe nodule demonstrates an SUV of 2.1 and measures 1.6 cm. Activity is more pronounced on the non-c orrected images, however. Left lower lobe nodule demonstrates an SUV of 2.3 and measures 1.3 cm. Abdomen: Normal uptake in the stomach, spleen, pancreas, liver, and adrenal glands. No abnormal retroperitoneal or mesenteric lymph node uptake. Prominent celiac lymph node demonstrates an SUV of 3.3 and measures 1.2 cm x 0.8 cm. Pelvis: No suspicious pelvic sidewall o r inguinal lymph node uptake. Review of the osseous structures demonst rates no suspicious uptake. IMPRESSION: 1. 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 This process appears more aggressive. 2. Less pronounced, but abnormal, uptak e within smaller pulmonary nodules and a left upper paratracheal lymph node are suggestive of a separate process, also likely malignant. Similarly, a celiac lymph node demonstrates similar uptake, likely rela elijah to metastatic disease. This process mariluz ears less aggressive. [id number] Performing Organization Address City/State/Zipcode Phone Number [facility] [address] [place] [address] POC glucose (12/07/2018 1:01 PM CDT) Pathologist Sig nature POC glucose 79 65 - 99 mg/dL [facility] Comment: HOSPITAL No Action Needed Meter ID: [id number] School Manager: Gerardo Yusuf Specimen Performing Organization Address City/State/Zipcode Phone Number [facility] DEPARTMENT OF PATHOLOGY AND [address] [place] [phone] GENOMIC MEDICINE [address] [address] [address] Chest External Study (11/25/2018 2:49 PM CDT) Specimen Narrative Performed At This exam was not acquired at a Method[facility] t facility and has not been [facility] interpreted by a Taoist Provider. T he exam was imported into our imaging system for comparisons purposes. Performing Organization Address City/[facility]/Zipcode Phone Number [facility] [address] [place] [address] CT Chest W Contrast (11/25/2018)Only the most recent of2 resultswithin the time period is included. Narrative Performed At This result has an attachment that is no t available. 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
--- OUTSIDE RECORDS SUMMARY | 2019-10-31 07:20 | XMS REPORT | Clinical Summary ---
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 Last Filed Vital Signs Not on file Plan of Treatment Date Type Specialty Care Team Description 11/01/2019 Procedure visit Radiation Oncology Sriram Fuller Arrived MD [address] [place], [place] [address] 11/01/2019 Hospital Encounter Radiology Sriram Fuller MD [address] [place], [place] [address] 11/22/2019 Procedure visit Radiation Oncology Sriram Fuller MD [address] [place], [place] [address] 12/25/2019 Procedure visit Radiation Oncology Sriram Fuller MD [address] [place], [place] [address] Health Maintenance Due Date Last Done Comments BREAST CANCER SCREENING 1945 COLON CANCER SCREENING COLONOSCOPY 1945 PNEUMOCOCCAL 65+ HIGH/HIGHEST RISK (1 of 2 - PCV13) 11/10/2011 MEDICARE ANNUAL WELLNESS (YEAR 2 or FIRST YEAR if no 10/23/2012 IPPE) INFLUENZA VACCINE (Season Ended) 2020 Results Not on fileafter 10/30/2018 Insurance Payer Benefit Plan / Group Subscriber ID Type Phone A ddress MEDICARE MEDICARE A B xxxxxxxxxxx Medicare MCR SUPPLEMENT/INDIVIDUAL AARP/[facility] xxxxxxxxxxx [facility]
[2019-10-31] MEDS ORDERED: Ringers Lactate 1,000 ML IV ONE ×2 (07:29→15:30)
[2019-10-31] MEDS ORDERED: CEFTRIAXONE/SWI 1gm 1 GM/10 ML SYR IV ONE (07:30)
[2019-10-31] MEDS ORDERED: SCOPOLAMINE HYDROBROMIDE PATCH TD ONE ×2 (08:40→08:46)
[2019-10-31] MEDS ORDERED: propofoL 200 MG/20 ML VIAL IV ONE (08:49)
[2019-10-31] MEDS ORDERED: MIDAZOLAM HCL 2 MG/2 ML INJ ONE (08:49)
[2019-10-31] MEDS ORDERED: FENTANYL CITR 100 MCG/2 ML ONE (08:49)
[2019-10-31] MEDS ORDERED: ROCURONIUM 50 MG/5 ML VIAL IV ONE (08:50)
[2019-10-31] MEDS ORDERED: LIDOCAINE 1% MPF 5 ML VIAL ONE (08:50)
[2019-10-31] MEDS ORDERED: EPHEDRINE SULF 50 MG/ML VIAL ONE (09:33)
[2019-10-31] MEDS ORDERED: NS 0.9% VIAL 10 ML ONE (09:33)
[2019-10-31] MEDS ORDERED: dexAMETHasone 10 MG/ML VIAL ONE (09:39)
[2019-10-31] MEDS ORDERED: KETOROLAC 30 MG/ML INJ ONE (09:41)
[2019-10-31] MEDS ORDERED: ONDANSETRON 4 MG/2 ML VIAL ONE (09:54)
[2019-10-31] MEDS ORDERED: GLYCOPYRROLATE 0.2 MG/ML SYR ONE (09:56)
[2019-10-31] MEDS ORDERED: NEOSTIGMINE 1 MG/ML -5 ML ONE (09:59)
[2019-10-31] MEDS ORDERED: SUCCINYLCHOLINE 20 MG/ML (10 ML) IV ONE (10:28)
[2019-10-31] MEDS ORDERED: EPINEPHRINE INH 0.5 ML VIAL IH ONE (10:31)
[2019-10-31] MEDS ORDERED: LABETALOL 20 MG/4ML SYRINGE IV ONE (10:38)
[2019-10-31] MEDS ORDERED: ALBUTEROL 2.5 MG/3 ML NEB SOL ONE (11:21)
[2019-10-31] MEDS ORDERED: GEMCITABINE HCL IVPB ONE (12:45)
[2019-10-31] MEDS ORDERED: NA CHLORIDE 0.9% IVPB ONE (12:45)
[2019-10-31 14:38] VITALS: O2SAT 94
[2019-10-31 15:59] VITALS: BP 124/59; TEMP 97.5
--- NOTE | 2019-11-21 19:27 | OP ---
Date of Procedure: 10/31/2019 Surgeon: TIFFANIE OLSON Charge Lpn: No occupational therapist's assistant. Preoperative Diagnosis: Bladder tumor. Postoperative Diagnosis: Bladder tumor. Procedure Performed: Cystoscopy, transurethral resection of bladder tumor, instillation of intravesi isabella chemotherapy. Anesthesia: General. Procedure In Detail: With the patient in modified dorsal lithotomy position on the cystoscopy table after the satisfactory induction of anesthesia, the genital region was prepped and draped in usual st erile fashion. The 22-Japanese cystoscope was passed per urethra. The urethra and bladder were inspec elijah. The ureteral orifices were normal and showed clear efflux. The bladder was thoroughly examined with the 30 and 70 degree lenses revealing an approximately 2 cm tumor on the left lateral wall of t he bladder. We then exchanged the cystoscope for the standard resectoscope and resected the tumor do wn to its base and then took an additional resectoscope sample of the tissue under the base. The shad or had a papillary repair and a very narrow stalk such that the base of the stalk was completely incl uded on the base biopsy. False tissue fragments were removed and then a Brown catheter was inserted with the plan to give the intravesical gemcitabine chemotherapy in the PACU when it arise from the armacy. The patient tolerated the procedure well. There were no complications. Blood loss was less than 20 cc. Counts were correct. The specimen was sent as bladder tumor fragments and also was bladder tumor base. JAY/CUAUHTEMOC Voice ID: [id number] Report ID: [id number]
== END 2019-10-31 15:58 | disposition home or self-care (01) ==
LOC: OR 07:01
PROVIDERS: ATTEND Internal Medicine Hematology & Oncology
PROC: 3E0K805 Introduction of Other Antineoplastic into Genitourinary Tract, Via Natural or Artificial Opening Endoscopic (ICD-10-PCS; 2019-10-31)
PROC: 0TBB8ZX Excision of Bladder, Via Natural or Artificial Opening Endoscopic, Diagnostic (ICD-10-PCS; principal; 2019-10-31 08:00)
DX: C67.2 Malignant neoplasm of lateral wall of bladder (principal); Z11.59 Encounter for screening for other viral diseases; I48.91 Unspecified atrial fibrillation; I10 Essential (primary) hypertension; K21.9 Gastro-esophageal reflux disease without esophagitis; Z87.891 Personal history of nicotine dependence; Z79.01 Long term (current) use of anticoagulants; Z85.3 Personal history of malignant neoplasm of breast; Z85.118 Personal history of other malignant neoplasm of bronchus and lung; Z90.49 Acquired absence of other specified parts of digestive tract; Z90.2 Acquired absence of lung [part of]; Z80.9 Family history of malignant neoplasm, unspecified
CPT/HCPCS: 93005; 85025; 36415; 85610; 88305; 88307; 85730; 80053; 52235; 51720; J2704; J0330; J3010; J1100; J2710; J0696; J9201 ×2; J7120 ×2; J2405; J8999; J2250